=== PATIENT | female | born 1955 | race Caucasian/White ===

== ENCOUNTER → 2017-06-09 | Outpatient (CLI) | payer BC ==
[~2017-06-09] MED LIST: ACET473E5 PO; ASPI-266 PO; CALC-656 PO; CHOL200010 PO; NEBI5TAB8 PO; OMEG10005 PO
== END ==
LOC: CARD 09:51
PROVIDERS: ATTEND Internal Medicine
DX: I48.91 Unspecified atrial fibrillation (principal)
CPT/HCPCS: 93225; 93226

== ENCOUNTER 2017-06-14 08:08 | Inpatient (IN) | payer BC ==
[2017-06-14] VITALS (33 sets, daily range): BP systolic 104–142; BP diastolic 72–118
[~2017-06-14] VITALS: Ht 165.1 cm; Wt 80.4 kg
[2017-06-14] MEDS ORDERED: NS IV 1000 ML 1,000 ML IV ONE (08:40)
[2017-06-14] MEDS ORDERED: DILTIAZEM 25 MG/5 ML INJ (CARDIZEM) VIAL IVP ONE (08:45)
[2017-06-14] MEDS ORDERED: ONDANSETRON 4 MG/2 ML (SDV) Z0FRAN IVP ONE (08:45)
[2017-06-14 08:57] LABS: BASOPHILS % (AUTO) 0 % (0-10); EOSINOPHILS % (AUTO) 0 % (0-10); LYMPHOCYTES # (AUTO) 1.5 X 10^3 (1.0-4.0); LYMPHOCYTES % (AUTO) 15 % (12-44); MEAN CORPUSCULAR HEMOGLOBIN 28 PG (25-34); MEAN CORPUSCULAR HGB CONC 33 G/DL (32-36); MEAN CORPUSCULAR VOLUME 84 FL (80-99); MEAN PLATELET VOLUME 10.7 FL (7.4-10.4); MONOCYTES # (AUTO) 0.5 X 10^3 (0.0-1.0); MONOCYTES % (AUTO) 5 % (0-12); NEUTROPHILS # (AUTO) 8.4 X 10^3 (1.8-7.8); NEUTROPHILS % (AUTO) 80 % (42-75); PLATELET COUNT 214 10^3/uL (130-400); RED BLOOD COUNT 5.64 10^6/uL (4.35-5.85); RED CELL DISTRIBUTION WIDTH 13.3 % (10.0-14.5); WHITE BLOOD COUNT 10.6 10^3/uL (4.3-11.0)
[2017-06-14] MEDS: DILTIAZEM DRIP 100 MG in SODIUM CHLORIDE (ADD-VANTAGE) 100 ML IV SCH ×2 (08:58→20:18)
[2017-06-14 09:04] LABS: INR 1.1 (0.8-1.4); PROTHROMBIN TIME PATIENT 13.9 SEC (12.2-14.7)
[2017-06-14 09:17] LABS: ALANINE AMINOTRANSFERASE 30 U/L (0-55); ALBUMIN 4.6 GM/DL (3.2-4.5); ANION GAP 12 MMOL/L (5-14); ASPARTATE AMINO TRANSFERASE 22 U/L (5-34); BILIRUBIN,TOTAL 0.9 MG/DL (0.1-1.0); BLOOD UREA NITROGEN 14 MG/DL (7-18); BUN/CREATININE RATIO 12; CALCIUM 10.3 MG/DL (8.5-10.1); CARBON DIOXIDE 24 MMOL/L (21-32); CHLORIDE 107 MMOL/L (98-107); CREATININE SERUM 1.13 MG/DL (0.60-1.30); GFR ESTIMATED 48; GLUCOSE 120 MG/DL (70-105); MAGNESIUM 2.1 MG/DL (1.8-2.4); POTASSIUM 3.8 MMOL/L (3.6-5.0); SODIUM 143 MMOL/L (135-145)
[2017-06-14 09:25] LABS: MYOGLOBIN SERUM 31.7 NG/ML (10.0-92.0)
[2017-06-14 09:38] LABS: THYROID STIMULATING HORMONE 2.17 UIU/ML (0.35-4.94)
[2017-06-14 10:02] LABS: BILIRUBIN,URINE NEGATIVE (NEGATIVE); KETONES,URINE NEGATIVE (NEGATIVE); LEUKOCYTE ESTERASE ,URINE NEGATIVE (NEGATIVE); NITRITE,URINE NEGATIVE (NEGATIVE); PH,URINE 7 (5-9); PROTEIN,URINE NEGATIVE (NEGATIVE); UROBILINOGEN,URINE NORMAL (NORMAL)
[2017-06-14 10:09] LABS: WBC,URINE RARE /HPF
--- NOTE | 2017-06-14 10:20 | Diagnostic Imaging Report ---
INDICATION: Atrial fibrillation. COMPARISON: 11/30/2014. FINDINGS: The cardiac silhouette has enlarged since prior examination. No pleural effusion or pneumothorax. Visible lungs are clear. Posterior lower lobes are poorly evaluated by portable radiography. IMPRESSION: 1. Interval enlargement of cardiac silhouette may be due to cardiomegaly. 2. Pericardial effusion could be present. Consider correlation with echocardiography. Dictated by: Dictated on workstation # [id number]
--- NOTE | 2017-06-14 10:51 | ED Cardiac General ---
History of Present Illness General Chief Complaint: Cardiac/General Problems Stated Complaint: DIARRHEA,MUSCLE WEAKNESS,RACING HEART -A FIB Nursing Triage Note: c/o rapid heart rate and weakness. Pt reports symptoms have been intermittant the last few days. Hx of A-fib. Source: patient Exam Limitations: no limitations History of Present Illness Time seen by provider: 08:26 Initial Comments This pleasant 62-year-old woman presents to emergency room with complaints of tachycardia arrhythmia and lightheadedness. She has a history of atrial fibrillation which is being managed by Dr. Sorenson. She takes Cartia XT for rhythm control. She has not yet taken her dose this morning. Her last dose was at 09:00. She is tachycardic with heart rates in the 130s to 150s on arrival. She reports her symptoms have worsened throughout the week. She did recently do a property assessment monitor as an outpatient and the results are not yet known to her. She also developed nausea and diarrhea over the last 24 hours. She takes a baby aspirin daily but is not presently on anticoagulation. Allergies and Home Medications Allergies Coded Allergies: No Known Drug Allergies (Verified Allergy, Unknown, 08/21/08) Home Medications Acetaminophen With Codeine 1 Ml Elixir, 1-2 ML PO Q4H, #40 Prescribed by: RYAN VINCENT on 12/08/14 0906 Calcium Carbonate/Vitamin D3 1 Each Tablet, 1 EACH PO DAILY, (Reported) Cholecalciferol 2,000 Unit Tablet, 2,000 UNIT PO DAILY, (Reported) Nebivolol Hcl 5 Mg Tablet, 1 EACH PO DAILY, (Reported) [place]-3 Fatty Acids 1,000 Mg Capsule, 1,000 MG PO DAILY, (Reported) Review of Systems Constitutional: weakness EENTM: No Symptoms Reported Respiratory: No Symptoms Reported Cardiovascular: See HPI Gastrointestinal: See HPI Genitourinary: No Symptoms Reported Musculoskeletal: no symptoms reported Skin: no symptoms reported Psychiatric/Neurological: No Symptoms Reported Endocrine: No Symptoms Reported Hematologic/Lymphatic: No Symptoms Reported Past Fwlreyu-Zrhums-Yuqbwa Hx Patient Social History Alcohol Use: Denies Use Recreational Drug Use: No Recent Foreign Travel: No Contact w/Someone Who Travel: No Recent Infectious Disease Expo: No Immunizations Up To Date Date of Influenza Vaccine: Jul 15, 2014 Surgeries History of Surgeries: Yes (LEFT LEG LOWER PLATE, HEMORRHOIDECTOMY, SKIN CANCER , ) Surgeries: Thyroidectomy (partial) Respiratory History of Respiratory Disorde: No Cardiovascular History of Cardiac Disorders: Yes Cardiac Disorders: Atrial Fibrillation (paroxysmal) Neurological History of Neurological Disord: No Reproductive System : No Hx Reproductive Disorders: No Sexually Transmitted Disease: No HIV/AIDS: No Female Reproductive Disorders: Denies Genitourinary History of Genitourinary Disor: No Gastrointestinal History of Gastrointestinal Di: No Musculoskeletal History of Musculoskeletal Dis: Yes (PLATE IN LEFT LEG) Endocrine History of Endocrine Disorders: No HEENT Loss of Vision: Denies Hearing Impairment: Denies Cancer History of Cancer: Yes Cancer: Skin Psychosocial History of Psychiatric Problem: No Integumentary History of Skin or Integumenta: No Blood Transfusions History of Blood Disorders: No Adverse Reaction to a Blood Tr: No Physical Exam Vital Signs Vital Sign - Last 12Hours 06/14/17 08:08 Temp 97.5 Pulse 140 Resp 20 B/P (MAP) 138/100 Pulse Ox 98 O2 Delivery Room Air Capillary Refill : Less Than 3 Seconds General Appearance: No Apparent Distress, WD/WN HEENT: PERRL/EOMI, Normal ENT Inspection Neck: Normal Inspection Respiratory: Lungs Clear, Normal Breath Sounds, No Accessory Muscle Use, No Respiratory Distress Cardiovascular: No Edema, No Murmur, Irregularly Irregular, Tachycardia Extremity: Normal Inspection, No Pedal Edema Neurologic/Psychiatric: Alert, Oriented x3, No Motor/Sensory Deficits, Normal 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, 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 Skin: Normal Color, Warm/Dry Progress/Results/Core Measures Results/Orders Lab Results Laboratory Tests Test 06/14/17 08:45 06/14/17 09:54 Range/Units White Blood Count 10.6 4.3-11.0 10^3/uL Red Blood Count 5.64 4.35-5.85 10^6/uL Hemoglobin 15.7 11.5-16.0 G/DL Hematocrit 48 35-52 % Mean Corpuscular Volume 84 80-99 FL Mean Corpuscular Hemoglobin 28 25-34 PG Mean Corpuscular Hemoglobin Concent 33 32-36 G/DL Red Cell Distribution Width 13.3 10.0-14.5 % Platelet Count 214 130-400 10^3/uL Mean Platelet Volume 10.7 H 7.4-10.4 FL Neutrophils (%) (Auto) 80 H 42-75 % Lymphocytes (%) (Auto) 15 12-44 % Monocytes (%) (Auto) 5 0-12 % Eosinophils (%) (Auto) 0 0-10 % Basophils (%) (Auto) 0 0-10 % Neutrophils # (Auto) 8.4 H 1.8-7.8 X 10^3 Lymphocytes # (Auto) 1.5 1.0-4.0 X 10^3 Monocytes # (Auto) 0.5 0.0-1.0 X 10^3 Eosinophils # (Auto) 0.0 0.0-0.3 10^3/uL Basophils # (Auto) 0.0 0.0-0.1 10^3/uL Prothrombin Time 13.9 12.2-14.7 SEC INR Comment 1.1 0.8-1.4 Activated Partial Thromboplast Time 30 24-35 SEC Sodium Level 143 135-145 MMOL/L Potassium Level 3.8 3.6-5.0 MMOL/L Chloride Level 107 98-107 MMOL/L Carbon Dioxide Level 24 21-32 MMOL/L Anion Gap 12 5-14 MMOL/L Blood Urea Nitrogen 14 7-18 MG/DL Creatinine 1.13 0.60-1.30 MG/DL Estimat Glomerular Filtration Rate 48 BUN/Creatinine Ratio 12 Glucose Level 120 H 70-105 MG/DL Calcium Level 10.3 H 8.5-10.1 MG/DL Magnesium Level 2.1 1.8-2.4 MG/DL Total Bilirubin 0.9 0.1-1.0 MG/DL Aspartate Amino Transf (AST/SGOT) 22 5-34 U/L Alanine Aminotransferase (ALT/SGPT) 30 0-55 U/L Alkaline Phosphatase 86 40-136 U/L Myoglobin 31.7 10.0-92.0 NG/ML Troponin I < 0.30 <0.30 NG/ML Total Protein 8.0 6.4-8.2 GM/DL Albumin 4.6 H 3.2-4.5 GM/DL Thyroid Stimulating Hormone (TSH) 2.17 0.35-4.94 UIU/ML Free Thyroxine 1.31 0.70-1.48 NG/DL Urine Color YELLOW Urine Clarity CLEAR Urine pH 7 5-9 Urine Specific [place] 1.005 L 1.016-1.022 Urine Protein NEGATIVE NEGATIVE Urine Glucose (UA) NEGATIVE NEGATIVE Urine Ketones NEGATIVE NEGATIVE Urine Nitrite NEGATIVE NEGATIVE Urine Bilirubin NEGATIVE NEGATIVE Urine Urobilinogen NORMAL NORMAL MG/DL Urine Leukocyte Esterase NEGATIVE NEGATIVE Urine RBC (Auto) 2+ H NEGATIVE Urine RBC 2-5 H /HPF Urine WBC RARE /HPF Urine Squamous Epithelial Cells 2-5 /HPF Urine Crystals NONE /LPF Urine Bacteria FEW H /HPF Urine Casts NONE /LPF Urine Mucus NEGATIVE /LPF Urine Culture Indicated NO My Orders Orders - FREDY REICH MD Ekg Tracing (06/14/17 08:31) Cbc With Automated Diff (06/14/17 08:40) Magnesium (06/14/17 08:40) Chest 1 View, Ap/Pa Only (06/14/17 08:40) Cardiac Profile 1 (06/14/17 08:40) Comprehensive Metabolic Panel (06/14/17 08:40) Myoglobin Serum (06/14/17 08:40) Protime With Inr (06/14/17 08:40) Partial Thromboplastin Time (06/14/17 08:40) Monitor-Rhythm Ecg Trace Only (06/14/17 08:40) Lipid Panel (06/15/17 06:00) Saline Lock/Iv-Start (06/14/17 08:40) Ns Iv 1000 Ml (Sodium Chloride 0.9%) (06/14/17 08:40) Ondansetron Injection (Zofran Injectio (06/14/17 08:45) Thyroid Stimulating Hormone (06/14/17 08:40) Free T4 (Free Thyroxine) (06/14/17 08:40) Ua Culture If Indicated (06/14/17 08:40) Diltiazem Injection (Cardizem Injection) (06/14/17 08:45) Sodium Chloride (Ad... W/Diltiazem Drip (06/14/17 08:45) Medications Given in ED Current Medications Medications Dose Ordered Sig/Raine Route Start Time Stop Time Status Last Admin Dose Admin Diltiazem HCl 10 mg ONCE ONCE IVP 06/14/17 08:45 06/14/17 08:46 DC 06/14/17 08:56 10 MG Ondansetron HCl 4 mg ONCE ONCE IVP 06/14/17 08:45 06/14/17 08:46 DC 06/14/17 08:58 4 MG Sodium Chloride 1,000 ml @ 0 mls/hr Q0M ONCE IV 06/14/17 08:40 06/14/17 08:42 DC 06/14/17 08:59 1,000 MLS/HR Vital Signs/I&O Vital Sign - Last 12Hours 06/14/17 06/14/17 08:08 08:58 Temp 97.5 98.3 Pulse 140 140 Resp 20 18 B/P (MAP) 138/100 143/103 Pulse Ox 98 97 O2 Delivery Room Air Blood Pressure Mean: 113 Progress Note #1: Time: 11:00 Progress Note Workup is unremarkable. Patient responded well to Cardizem drip at 10 mg per hour after a 10 mg bolus. Heart rate is presently 101. Blood pressure is 122/ 95. Patient is feeling improved. Progress Note #2: Time: 11:[address] Lake does recommend Eliquis which will be added to the orders. ECG Initial ECG Impression Date: Jun 14, 2017 Initial ECG Impression Time: 08:24 Initial ECG Rate: 157 Initial ECG Rhythm: A Fib/Flutter Initial ECG Impression: Atrial Fibrillation Comment Atrial fibrillation with rapid ventricular response. No acute ST elevation or depression. Diagnostic Imaging Diagonstic Imaging: Xray Plain Films/CT/US/NM/MRI: chest Comments Chest x-ray viewed by me and report reviewed. See report below: NAME: EPIFANIO LAKHANI [facility] REC#: [id number] PT STATUS: REG ER : 1955 PHYSICIAN: FREDY REICH MD ADMIT DATE: 06/14/17/ER Draft Date of Exam:06/14/17 CHEST 1 VIEW, AP/PA ONLY INDICATION: Atrial fibrillation. COMPARISON: 11/30/2014. FINDINGS: The cardiac silhouette has enlarged since prior examination. No pleural effusion or pneumothorax. Visible lungs are clear. Posterior lower lobes are poorly evaluated by portable radiography. IMPRESSION: 1. Interval enlargement of cardiac silhouette may be due to cardiomegaly. 2. Pericardial effusion could be present. Consider correlation with echocardiography. Dictated on workstation # [id number] Dict: 06/14/17 1005 Trans: 06/14/17 1020 TS [id number] Interpreted by: JERAD GLYNN MD Departure Communication (Admissions) Time/Spoke to Admitting Phy: 10:[address] Weiss agrees with admission to cardiac step down on Cardizem drip. She would like a cardiology consultation. Time/Spoke to Consulting Phy: 10:45 Communication/Consulting Dr. Lake notified of consultation. He agrees with a Cardizem drip and would like patient started on Eliquis. Impression Impression: Primary Impression: Atrial fibrillation with rapid ventricular response Additional Impressions: Nausea Diarrhea Qualified Codes: R19.7 - Diarrhea, unspecified Disposition: 09 ADMITTED INPATIENT Condition: Improved Admissions Decision to Admit Reason: Admit from ER (General) Decision to Admit/Date: Jun 14, 2017 Time/Decision to Admit Time: 10:30 Departure-Patient Inst. Referrals: COLLEEN SORENSON MD (PCP/Family) Primary Care Physician FREDY REICH MD Jun 14, 2017 10:51
[2017-06-14] MEDS ORDERED: ASPIRIN 81 MG CHEW (CHILDREN'S ASA) PO ONE (11:15)
[2017-06-14] MEDS ORDERED: APIXABAN 5 MG (ELIQUIS) TABLET PO ONE (11:30)
--- NOTE | 2017-06-14 12:15 | Consultation-Cardiology ---
HPI-Cardiology Cardiology Consultation: Date of Consultation 06/14/17 Date of Admission Attending Physician Hermann Sorenson MD Admitting Physician Hermann Sorenson MD Consulting Physician Sen LAKE MD HPI: Time Seen by Provider: 12:10 Chief Complaint: Palpitations, syncope This is a very pleasant 62-year-old lady with history of hypothyroidism on thyroid replacement therapy. She has family history of atrial fibrillation. She is a nonsmoker. She had a syncopal episode last weekend. She also had an irregular pulse and went to Dr. Sorenson. She was found to be in atrial fibrillation. She was started on Cardizem. However she continues to be in atrial fibrillation. She presented to the ER with atrial fibrillation with rapid ventricular rate. She complains of palpitations. She denies any chest pain however does complain of shortness of breath. She does not have any other symptoms. Review of Systems-Cardiology Review of Systems Constitutional: No As described under HPI, No no symptoms reported, No chills, No fever, No lightheadedness, No malaise, No tiredness, No weight loss, No weight gain, No other Eyes: No As described under HPI, No no symptoms reported, No blindness, No blurred vision, No contact lenses, No drainage, No decreased acuity, No foreign body sensation, No glasses, No inflammation, No pain, No photophobia, No previous injury, No shadows, No tunnel vision, No other, No vision change Ears/Nose/Throat: No As described under HPI, No no symptoms reported, No chronic hearing loss, No epistaxis, No ear discharge, No ear pain, No loose teeth, No mouth pain, No mouth swelling, No nasal drainage, No nose pain, No recent hearing loss, No throat pain, No throat swelling, No ulcerations, No other Respiratory: No no symptoms reported, No As described under HPI, No cough, No orthopnea, shortness of breath, No SOB with excertion, No SOB at rest, No stridor, No wheezing, No other Cardiovascular: irregular heart rate, palpitations, syncope Gastrointestinal: No no symptoms reported, No As described under HPI, No abdomen distended, No abdominal pain, No blood streaked bowels, No constipation , No diarrhea, No difficulty swallowing, No nausea, No poor appetite, No poor fluid intake, No rectal bleeding, No vomiting, No other, No nausea/vomiting/ diarrhea, No stool coloration changes Genitourinary: No no symptoms reported, No As described under HPI, No burning, No dysuria, No discharge, No frequency, No flank pain, No hematuria, No incontinence, No pain, No urgency, No other, No urine frequency changes, No urine coloration changes Musculoskeletal: No no symptoms reported, No As describe under HPI, No back pain, No gout, No joint pain, No joint swelling, No muscle pain, No muscle stiffness, No neck pain, No other Skin: No no symptoms reported, No As described under HPI, No change in color, No change in hair/nails, No dryness, No lesions, No lumps, No rash, No other, No skin related problems, No ulcerations, No rash on exposed areas, No ulcerations on exposed areas Psychiatric/Neurological: No no symptoms reported, No As described under HPI, No anxiety, No depression, No emotional problems, No headache, No numbness, No pre-existing deficit, No seizure, No tingling, No tremors, No weakness, No other , No focal weakness, No syncope Hematologic: No no symptoms reported, No As described under HPI, No anemia, No blood clots, No easy bleeding, No easy bruising, No swollen glands, No other, No bleeding abnormalities TCP-[id number]-Derqpc Hx Patient Social History Alcohol Use: Denies Use Recreational Drug Use: No Recent Foreign Travel: No Recent Infectious Disease Expo: No Immunizations Up To Date Date of Influenza Vaccine: Jul 15, 2014 Past Medical History PMH As described under Assessment. Allergies and Home Medications Allergies Coded Allergies: No Known Drug Allergies (Verified Allergy, Unknown, 08/21/08) Home Medications Acetaminophen With Codeine 1 Ml Elixir, 1-2 ML PO Q4H, #40 Prescribed by: RYAN VINCENT on 12/08/14 0906 Calcium Carbonate/Vitamin D3 1 Each Tablet, 1 EACH PO DAILY, (Reported) Cholecalciferol 2,000 Unit Tablet, 2,000 UNIT PO DAILY, (Reported) Nebivolol Hcl 5 Mg Tablet, 1 EACH PO DAILY, (Reported) Fate-3 Fatty Acids 1,000 Mg Capsule, 1,000 MG PO DAILY, (Reported) Physical Exam-Cardiology Physical Exam Vital Signs/I&O Vital Sign - Last 12Hours 06/14/17 06/14/17 06/14/17 08:08 08:58 11:12 Temp 97.5 98.3 98.3 Pulse 140 140 Resp 20 18 B/P (MAP) 138/100 143/103 Pulse Ox 98 97 O2 Delivery Room Air Capillary Refill : Less Than 3 Seconds Constitutional: No appears stated age, No AAO x 3, No apparent distress, No PERRL, No well-developed, No well-nourished, No other HEENT: No PERRL, No normal ENT inspection, No TMs normal, No pharynx normal, No scleral icterus (R), No scleral icterus (L), No pale conjunctivae (R), No pale conjunctivae (L), No photophobia, No TM abnormal (R), No TM abnormal (L), No pharyngeal erythema, No tonsillar exudate, No other, No discharge, No EOMI, No hearing is well preserved, No hard of hearing, No oral hygience is good, No ulceration, No xanthelasmas are seen Neck: No non-tender, No full range of motion, No supple, No normal inspection, No carotid bruit, No limited range of motion, No lymphadenopathy (R), No lymphadenopathy (L), No tender lateral, No tender midline, No thyromegaly, No other, No carotid pulses are 2 + bilaterally, No with good upstrokes Respiratory: No accessory muscle use, No respiratory distress, No chest tender , No chest expansion is symmetric, No chest is bilaterally symmetric, No lungs clear to percussion, No lungs clear to auscultation, No crackles, No rhonchi, No rales, No stridor, No wheezing, No pleural rub, No other Cardiovascular: irregularly irregular, S1 and S2 Gastrointestinal: No tender, No soft, No round, No distended, No pulsatile mass , No organomegaly, No guarding, No rebound, No tenderness, No hernia, No mass, No audible bowel sounds, No abnormal bowel sounds, No abdominal bruits, No spleenomegaly, No other Rectal: deferred Extremities: No normal range of motion, No non-tender, No normal inspection, No pedal edema, No calf tenderness, No normal capillary refill, No pelvis stable , No calf tenderness, No inflammation, No pedal edema, No slow capillary refill , No swelling, No other, No abrasion, No clubbing, No cyanosis, No ecchymosis, No laceration, No no lower extremity edema bilateral, No significant edema, No tenderness, No wound Neurologic/Psychiatric: No timber setter II-XII nml as tested, No no motor/sensory deficits, No alert, No normal mood/affect, No oriented x 3, No abnormal cerebellar tests, No abnormal timber setter II-XII, No abnormal gait, No aphasia, No EOM palsy, No facial droop, No motor weakness, No sensory deficit, No depressed affect, No disoriented x 3, No other, No grossly intact, No power is 5/5 both on sides Skin: No normal color, No warm/dry, No cyanosis, No cool, No diaphoresis, No damp, No ecchymosis, No jaundice, No mottled, No pallor, No rash, No tattoos/ piercings, No ulcerations, No rash on exposed areas, No ulcerations on exposed areas, No other Data Review Labs Laboratory Tests 06/14/17 08:45: White Blood Count 10.6, Red Blood Count 5.64, Hemoglobin 15.7, Hematocrit 48, Mean Corpuscular Volume 84, Mean Corpuscular Hemoglobin 28, Mean Corpuscular Hemoglobin Concent 33, Red Cell Distribution Width 13.3, Platelet Count 214, Mean Platelet Volume 10.7H, Neutrophils (%) (Auto) 80H, Lymphocytes (%) (Auto) 15, Monocytes (%) (Auto) 5, Eosinophils (%) (Auto) 0, Basophils (%) (Auto) 0, Neutrophils # (Auto) 8.4H, Lymphocytes # (Auto) 1.5, Monocytes # (Auto) 0.5, Eosinophils # (Auto) 0.0, Basophils # (Auto) 0.0, Prothrombin Time 13.9, INR Comment 1.1, Activated Partial Thromboplast Time 30, Sodium Level 143, Potassium Level 3.8, Chloride Level 107, Carbon Dioxide Level 24, Anion Gap 12, Blood Urea Nitrogen 14, Creatinine 1.13, Estimat Glomerular Filtration Rate 48, BUN/Creatinine Ratio 12, Glucose Level 120H, Calcium Level 10.3H, Magnesium Level 2.1, Total Bilirubin 0.9, Aspartate Amino Transf (AST/SGOT) 22, Alanine Aminotransferase (ALT/SGPT) 30, Alkaline Phosphatase 86, Myoglobin 31.7, Troponin I < 0.30, Total Protein 8.0, Albumin 4.6H, Thyroid Stimulating Hormone (TSH) 2.17, Free Thyroxine 1.31 06/14/17 09:54: Urine Color YELLOW, Urine Clarity CLEAR, Urine pH 7, Urine Specific [place] 1.005L, Urine Protein NEGATIVE, Urine Glucose (UA) NEGATIVE, Urine Ketones NEGATIVE, Urine Nitrite NEGATIVE, Urine Bilirubin NEGATIVE, Urine Urobilinogen NORMAL, Urine Leukocyte Esterase NEGATIVE, Urine RBC (Auto) 2+H, Urine RBC 2-5H , Urine WBC RARE, Urine Squamous Epithelial Cells 2-5, Urine Crystals NONE, Urine Bacteria FEWH, Urine Casts NONE, Urine Mucus NEGATIVE, Urine Culture Indicated NO ECG Impression ECG Initial ECG Impression: Atrial Fibrillation w/RVR A/P-Cardiology Assessment/Admission Diagnosis 1. Atrial fibrillation with rapid ventricular rate, 2. Hypertension, 3. Syncope, 4. Hypothyroidism Plan Continue Cardizem infusion, start oral anticoagulation with Eliquis twice a day. Started amiodarone infusion. if she does not convert by tomorrow morning - > DAWN / Cardioversion tomorrow afternoon. NPO after light breakfast. Echocardiogram Telemetry Blood pressure control with Cardizem for now. CHADSVASC score is 2 for gender and HTN. So NOAC are indicated. Possible sleep apnea - sleep study as outpatient. TSH normal Thank you for your consultation. Please call me if you have any questions. Carlo Lake MD, FACP, FACC, FSCAI, FHRS, CCDS Interventional Cardiology Cardiac Electrophysiology Vascular Medicine and Endovascular Interventions Sen LAKE MD Jun 14, 2017 12:15 pm
[2017-06-14] MEDS: NS IV 1000 ML 1,000 ML IV SCH ×2 (12:26→23:29)
[2017-06-14] MEDS ORDERED: ONDANSETRON 4 MG/2 ML (SDV) Z0FRAN IV PRN (12:30)
[2017-06-14] MEDS ORDERED: LEVO50TA6 PO (12:46)
[2017-06-14] MEDS ORDERED: ASPI-983 PO (12:46)
[2017-06-14] MEDS ORDERED: DILT180C54 PO (12:46)
[2017-06-14] MEDS ORDERED: IBUP-1779 PO (13:01)
--- NOTE | 2017-06-14 13:34 | History & Physical-Hospitalist ---
HPI History of Present Illness: HPI/Chief Complaint CC: AF w/RVR HPI: This is a 62yoWF clinic patient of Dr Sorenson who has a h/o AF for 5 years , as does her father and brother, who had been doing well under regular appt with Dr Sorenson who began having issues with recurrent AF episodes which required office appt with Dr Sorenson on Thursday then progressed the rest of the week then became very severe last evening prompting a visit to ER. Pt was found to be in AF w/RVR which is requiring Cardizem IV infusion and Cardiology consultation. Source: patient, RN/MD Exam Limitations: no limitations Date Seen 06/14/17 Time Seen by Provider: 13:15 Attending Physician Hermann Sorenson MD PCP Hermann Sorenson MD Referring Physician Date of Admission Jun 14, 2017 at 10:54 Home Medications & Allergies Home Medications Reviewed patient Home Medication Reconciliation Form Allergies Allergies Coded Allergies No Known Drug Allergies ([id number]/[id number]/08) Past [place] Hx Patient Social History Employed/Student: employed ([employer] 16 years) Alcohol Use: Denies Use Recreational Drug Use: No Smoking Status: Never a Smoker Recent Foreign Travel: No Contact w/other who traveled: No Recent Infectious Disease Expo: No Immunizations Up To Date Date of Influenza Vaccine: Jul 15, 2014 Surgeries Yes (LEFT LEG LOWER PLATE, HEMORRHOIDECTOMY, SKIN CANCER, ) Thyroidectomy (partial) Respiratory No Cardiovascular Yes Atrial Fibrillation (paroxysmal) Neurological No Reproductive System : No Hx Reproductive Disorders: No Sexually Transmitted Disease: No HIV/AIDS: No Female Reproductive Disorders: Denies Genitourinary No Gastrointestinal No Musculoskeletal Yes (PLATE IN LEFT LEG) Endocrine History of Endocrine Disorders: No HEENT Loss of Vision: Denies Hearing Impairment: Denies Cancer Yes Skin Psychosocial History of Psychiatric Problem: No Integumentary History of Skin or Integumenta: No Blood Transfusions History of Blood Disorders: No Adverse Reaction to a Blood Tr: No Review of Systems Constitutional: see HPI, dizziness, malaise, weakness EENTM: no symptoms reported Respiratory: dyspnea on exertion Cardiovascular: palpitations Gastrointestinal: loss of appetite, nausea Genitourinary: no symptoms reported Musculoskeletal: no symptoms reported Skin: no symptoms reported Psychiatric/Neurological: No Symptoms Reported All Other Systems Reviewed Negative Unless Noted: Yes Physical Exam Physical Exam Vital Signs Vital Sign - Last 12Hours 06/14/17 08:08 Temp 97.5 Pulse 140 Resp 20 B/P (MAP) 138/100 Pulse Ox 98 O2 Delivery Room Air Capillary Refill : Less Than 3 Seconds General Appearance: No Apparent Distress, WD/WN, Chronically ill Eyes: Bilateral Eye Normal Inspection, Bilateral Eye PERRL HEENT: PERRL/EOMI, Normal ENT Inspection, Pharynx Normal Neck: Full Range of Motion, Normal Inspection, Non Tender, Supple, Carotid Bruit Respiratory: Chest Non Tender, Lungs Clear, Normal Breath Sounds, No Accessory Muscle Use, No Respiratory Distress Cardiovascular: No Edema, No Gallop, No JVD, No Murmur, Normal Peripheral Pulses, Irregularly Irregular, Tachycardia Gastrointestinal: Normal Bowel Sounds, No Organomegaly, No Pulsatile Mass, Non Tender, Soft Back: Normal Inspection, No CVA Tenderness, No Vertebral Tenderness Extremity: Normal Capillary Refill, Normal Inspection, Normal Range of Motion, Non Tender, No Calf Tenderness, No Pedal Edema Neurologic/Psychiatric: Alert, Oriented x3, No Motor/Sensory Deficits, Normal Mood/Affect Skin: Normal Color, Warm/Dry Lymphatic: No Adenopathy Results Results/Procedures Lab Laboratory Tests 06/14/17 08:45 Assessment/Plan Admission Diagnosis AF w/RVR Assessment and Plan Plan: [facility] ip Cardiology consultation Monitor closely Home meds Diagnosis/Problems Diagnosis/Problems (1) Atrial fibrillation with rapid ventricular response Status: Acute (2) Hypothyroidism Status: Chronic Qualifiers: Qualified Codes: E03.9 - Hypothyroidism, unspecified (3) Nausea Status: Acute Assessment & Plan: DANIELLA Dunne DO Jun 14, 2017 13:34
[2017-06-14] MEDS ORDERED: AMIODARONE INJECTION 450 MG in D5W IV SOLUTION (EXCEL) 250 ML IV SCH ×4 (17:00)
[2017-06-14] MEDS ORDERED: AMIODARONE INJECTION 450 MG in D5W IV SOLUTION (EXCEL) 250 ML IV ONE (17:00)
[2017-06-14] MEDS: ACETAMINOPHEN 325 MG TABLET/CAPLET (TYLENOL) PO PRN ×2 (17:38→23:27)
[2017-06-14] MEDS ORDERED: AMIODARONE 450 MG/9 ML (CORDARONE) VIAL IV ONE (17:47)
[2017-06-14] MEDS ORDERED: D5W IV SOLUTION (EXCEL) 250 ML IV ONE (17:48)
[2017-06-14] MEDS: APIXABAN 5 MG (ELIQUIS) TABLET PO SCH (20:02)
[2017-06-15] VITALS (24 sets, daily range): BP systolic 100–147; BP diastolic 67–112
[2017-06-15 04:40] LABS: CHOLESTEROL 171 MG/DL (< 200); DIRECT LDL 94 MG/DL (1-129); TRIGLYCERIDES 80 MG/DL (<150); VLDL CHOLESTEROL 16 MG/DL (5-40)
[2017-06-15] MEDS: DILTIAZEM DRIP 100 MG in SODIUM CHLORIDE (ADD-VANTAGE) 100 ML IV SCH ×2 (04:45→08:22)
[2017-06-15] MEDS ORDERED: MAGNESIUM 1 GM/100 ML IVPB 100 ML IV SCH (06:00)
[2017-06-15] MEDS ORDERED: POTASSIUM CL 10MEQ/50ML IVPB 50 ML IV SCH (06:00)
[2017-06-15] MEDS ORDERED: KCL 20 MEQ TAB (K-DUR) PO SCH (06:00)
[2017-06-15 06:42] LABS: ANION GAP 10 MMOL/L (5-14); BLOOD UREA NITROGEN 12 MG/DL (7-18); BUN/CREATININE RATIO 14; CALCIUM 8.8 MG/DL (8.5-10.1); CARBON DIOXIDE 21 MMOL/L (21-32); CHLORIDE 111 MMOL/L (98-107); CREATININE SERUM 0.84 MG/DL (0.60-1.30); GFR ESTIMATED > 60; GLUCOSE 109 MG/DL (70-105); MAGNESIUM 1.8 MG/DL (1.8-2.4); POTASSIUM 3.9 MMOL/L (3.6-5.0); SODIUM 142 MMOL/L (135-145)
[2017-06-15] MEDS ORDERED: INFLUENZA TRIvalent 2017-2018 0.5 ML/45 MCG SYR IM ONE (07:15)
--- NOTE | 2017-06-15 07:44 | Pulmonary Consultation ---
History of Present Illness History of Present Illness Date of Consultation 06/15/17 07:39 Time Seen by Provider: 07:41 Date of Admission History of Present Illness 62yo with hx of recurrent AFib presented to ED secondary to palpitations and was found to be in Afib RVR. She was placed on Cardizem gtt and admitted to ICU. pt had syncopal episode last weekend. I am consulted for probable DIMITRI. Allergies and Home Medications Allergies Coded Allergies: No Known Drug Allergies (Verified , 08/21/08) Home Medications Aspirin 81 Mg Tablet.dr, 81 MG PO DAILY, (Reported) Calcium Carbonate/Vitamin D3 1 Each Tablet, 1 EACH PO DAILY, (Reported) Cholecalciferol 2,000 Unit Tablet, 2,000 UNIT PO DAILY, (Reported) Diltiazem HCl 180 Mg Cap.er.24h, 180 MG PO DAILY, (Reported) Ibuprofen 400 Mg Tablet, 400 MG PO Q6H PRN for PAIN, (Reported) Levothyroxine Sodium 50 Mcg Tablet, 50 MCG PO DAILY, (Reported) Past Iceevwv-Oxunhq-Gfblxi Hx Patient Social History Alcohol Use: Denies Use Recreational Drug Use: No Smoking Status: Never a Smoker Recent Foreign Travel: No Contact w/Someone Who Travel: No Recent Infectious Disease Expo: No Recent Hopitalizations: No Immunizations Up To Date Date of Influenza Vaccine: Jul 15, 2014 Seasonal Allergies Seasonal Allergies: No Surgeries History of Surgeries: Yes (LEFT LEG LOWER PLATE, HEMORRHOIDECTOMY, SKIN CANCER , ) Surgeries: Thyroidectomy (partial) Respiratory History of Respiratory Disorde: No Cardiovascular History of Cardiac Disorders: Yes Cardiac Disorders: Atrial Fibrillation (paroxysmal) Neurological History of Neurological Disord: No Reproductive System : No Hx Reproductive Disorders: No Sexually Transmitted Disease: No HIV/AIDS: No Female Reproductive Disorders: Denies Genitourinary History of Genitourinary Disor: No Gastrointestinal History of Gastrointestinal Di: Yes Gastrointestinal Disorders: Irritable Bowel Musculoskeletal History of Musculoskeletal Dis: Yes (PLATE IN LEFT LEG) Endocrine History of Endocrine Disorders: Yes (thyroidectomy) HEENT Loss of Vision: Denies Hearing Impairment: Denies Cancer History of Cancer: Yes Cancer: Skin Psychosocial History of Psychiatric Problem: No Integumentary History of Skin or Integumenta: Yes (melanoma to r arm, removed) Blood Transfusions History of Blood Disorders: No Adverse Reaction to a Blood Tr: No Exam Exam Vital Signs Date Time Temp Pulse Resp B/P (MAP) Pulse Ox O2 Delivery O2 Flow Rate FiO2 06/15/17 06:00 71 16 114/92 Room Air 06/15/17 05:00 67 15 113/87 Room Air 06/15/17 04:00 69 12 118/80 Room Air 06/15/17 04:00 94 Room Air 06/15/17 03:00 68 15 104/79 Room Air 06/15/17 02:00 75 15 107/72 Room Air 06/15/17 01:35 67 101/75 06/15/17 01:00 76 06/15/17 01:00 69 14 100/76 Room Air 06/15/17 00:15 69 107/72 06/15/17 00:00 79 13 105/73 Room Air 06/15/17 00:00 95 Room Air 06/14/17 23:00 79 13 126/92 Room Air 06/14/17 22:00 73 14 134/75 Room Air 06/14/17 21:05 96 Room Air 06/14/17 21:00 74 17 127/86 Room Air 06/14/17 20:18 97.9 75 129/90 95 06/14/17 20:00 96 Room Air 06/14/17 20:00 87 22 125/102 Room Air 06/14/17 20:00 97.9 06/14/17 19:00 75 06/14/17 19:00 75 13 104/79 Room Air 06/14/17 18:45 84 17 113/75 Room Air 06/14/17 18:30 86 17 119/80 Room Air 06/14/17 18:15 81 13 114/78 Room Air 06/14/17 18:08 100.1 06/14/17 18:00 82 16 126/82 Room Air 06/14/17 17:45 96 19 130/91 Room Air 06/14/17 17:38 100.1 06/14/17 17:30 79 16 120/77 Room Air 06/14/17 17:15 93 22 135/84 Room Air 06/14/17 17:00 122 30 142/103 Room Air 06/14/17 16:45 86 17 123/85 Room Air 06/14/17 16:30 91 14 125/82 Room Air 06/14/17 16:15 96 22 120/84 Room Air 06/14/17 16:00 102 19 126/73 Room Air 06/14/17 16:00 95 Room Air 06/14/17 15:45 74 18 117/84 Room Air 06/14/17 15:30 84 19 116/72 Room Air 06/14/17 15:15 89 13 121/74 Room Air 06/14/17 15:00 109 18 133/83 Room Air 06/14/17 14:45 92 14 120/80 Room Air 06/14/17 14:30 89 17 118/86 Room Air 06/14/17 14:15 122 29 108/83 Room Air 06/14/17 14:00 92 12 115/77 Room Air 06/14/17 13:45 95 13 117/88 Room Air 06/14/17 13:30 95 21 115/90 Room Air 06/14/17 13:15 103 20 120/87 Room Air 06/14/17 13:00 102 6 118/87 Room Air 06/14/17 12:45 89 16 124/91 Room Air 06/14/17 12:30 115 40 118/76 Room Air 06/14/17 12:26 98 06/14/17 12:15 122 23 133/118 Room Air 06/14/17 12:00 100.1 107 19 141/95 95 Room Air 06/14/17 11:58 120 06/14/17 11:34 98.3 110 18 97 06/14/17 11:12 98.3 06/14/17 08:58 98.3 140 18 143/103 97 06/14/17 08:08 97.5 140 20 138/100 98 Room Air General Appearance: No Apparent Distress, WD/WN, Chronically ill HEENT: PERRL/EOMI, Normal ENT Inspection, Pharynx Normal Neck: Full Range of Motion, Normal Inspection, Non Tender, Supple, Carotid Bruit Respiratory: Chest Non Tender, Lungs Clear, Normal Breath Sounds, No Accessory Muscle Use, No Respiratory Distress Cardiovascular: No Edema, No Gallop, No JVD, No Murmur, Normal Peripheral Pulses, Irregularly Irregular, Tachycardia Capillary Refill: Less Than 3 Seconds Extremity: Normal Capillary Refill, Normal Inspection, Normal Range of Motion, Non Tender, No Calf Tenderness, No Pedal Edema Neurologic/Psychiatric: Alert, Oriented x3, No Motor/Sensory Deficits, Normal Mood/Affect Skin: Normal Color, Warm/Dry Lymphatic: No Adenopathy Results Lab Laboratory Tests 06/14/17 08:45 06/15/17 03:40 Assessment/Plan Assessment/Plan Afib RVR -Cardizem -Cardiology following -Eliquis HTN Probable DIMITRI -PSG as out patient 254 Clinical Quality Measures DVT/VTE Risk/Contraindication: Risk Factor Score Per Nursin RFS Level Per Nursing on Admit: 2=Moderate GUIDO GARCIA DO Jun 15, 2017 07:44
--- NOTE | 2017-06-15 08:13 | Diagnostic Imaging Report ---
INDICATION: A fib, nausea, vomiting, diarrhea. Comparison made to prior examination 06/14/2017. FINDINGS: There is cardiomegaly. Mediastinum is unremarkable. Lungs are clear. There is no pleural effusion or pneumothorax. Mediastinum is unremarkable. IMPRESSION: No acute cardiopulmonary abnormality. Cardiomegaly. Dictated by: Dictated on workstation # [id number]
[2017-06-15] MEDS: APIXABAN 5 MG (ELIQUIS) TABLET PO SCH ×2 (08:20→20:52)
[2017-06-15] MEDS: ASPIRIN E.C. 81 MG (ECOTRIN) TAB PO SCH (08:21)
[2017-06-15] MEDS: NS IV 1000 ML 1,000 ML IV SCH ×2 (08:22→17:43)
[2017-06-15] MEDS: LEVOTHYROXINE 50 MCG (LEVOTHROID) TAB PO SCH (08:22)
[2017-06-15] MEDS ORDERED: CHOL20002 PO (10:22)
[2017-06-15] MEDS ORDERED: CALC-78 PO (10:22)
[2017-06-15] MEDS ORDERED: FAMO-119 PO (10:22)
[2017-06-15] MEDS: DILTIAZEM 240 MG (CARDIZEM CD) CAP PO SCH (10:31)
--- NOTE | 2017-06-15 13:42 | Cardiology Progress Note ---
Cardiology SOAP Progress Note Subjective: Still in atrial fibrillation with rapid ventricular rate. No significant symptoms. Objective: I&O/Vital Signs Vital Sign - Last 12Hours 06/15/17 06/15/17 06/15/17 06/15/17 02:00 03:00 04:00 04:00 Pulse 75 68 69 Resp 15 15 12 B/P (MAP) 107/72 104/79 118/80 Pulse Ox 94 O2 Delivery Room Air Room Air Room Air Room Air 06/15/17 06/15/17 06/15/17 06/15/17 05:00 06:00 07:00 08:00 Temp 98.1 Pulse 67 71 66 Resp 15 16 B/P (MAP) 113/87 114/92 Pulse Ox 96 O2 Delivery Room Air Room Air Room Air 06/15/17 06/15/17 06/15/17 06/15/17 08:00 08:22 09:00 12:00 Temp 97.9 Pulse 66 Resp 16 B/P (MAP) 127/91 Pulse Ox 95 94 96 95 O2 Delivery Room Air Room Air Room Air Weight (Pounds): 177 Weight (Ounces): 5.0 Weight (Calculated Kilograms): 80.612388 Constitutional: No appears stated age, No AAO x 3, No apparent distress, No PERRL, No well-developed, No well-nourished, No other Respiratory: No accessory muscle use, No respiratory distress, No chest tender , No chest expansion is symmetric, No chest is bilaterally symmetric, No lungs clear to percussion, No lungs clear to auscultation, No crackles, No rhonchi, No rales, No stridor, No wheezing, No pleural rub, No other Cardiovascular: irregularly irregular, tachycardia, S1 and S2 Gastrointestional: No tender, No soft, No round, No distended, No pulsatile mass, No organomegaly, No guarding, No rebound, No tenderness, No hernia, No mass, No audible bowel sounds, No abnormal bowel sounds, No abdominal bruits, No spleenomegaly, No other Extremities: No normal range of motion, No non-tender, No normal inspection, No pedal edema, No calf tenderness, No normal capillary refill, No pelvis stable , No calf tenderness, No inflammation, No pedal edema, No slow capillary refill , No swelling, No other, No abrasion, No clubbing, No cyanosis, No ecchymosis, No laceration, No no lower extremity edema bilateral, No significant edema, No tenderness, No wound Neurologic/Psychiatric: No dry chain operator II-XII nml as tested, No no motor/sensory deficits, No alert, No normal mood/affect, No oriented x 3, No abnormal cerebellar tests, No abnormal dry chain operator II-XII, No abnormal gait, No aphasia, No EOM palsy, No facial droop, No motor weakness, No sensory deficit, No depressed affect, No disoriented x 3, No other, No grossly intact, No power is 5/5 both on sides Skin: No normal color, No warm/dry, No cyanosis, No cool, No diaphoresis, No damp, No ecchymosis, No jaundice, No mottled, No pallor, No rash, No tattoos/ piercings, No ulcerations, No rash on exposed areas, No ulcerations on exposed areas, No other Results/Procedures: Labs Laboratory Tests 06/15/17 03:40: Sodium Level 142, Potassium Level 3.9, Chloride Level 111H, Carbon Dioxide Level 21, Anion Gap 10, Blood Urea Nitrogen 12, Creatinine 0.84, Estimat Glomerular Filtration Rate > 60, BUN/Creatinine Ratio 14, Glucose Level 109H, Calcium Level 8.8, Magnesium Level 1.8, Triglycerides Level 80, Cholesterol Level 171, LDL Cholesterol Direct 94, VLDL Cholesterol 16, HDL Cholesterol 61H A/P: Assessment/Dx: 1. Atrial fibrillation with rapid ventricular rate, 2. Hypertension, 3. Syncope, 4. Hypothyroidism Plan: Patient is still in atrial fibrillation and rapid ventricular rate. We are trying to transition to oral Cardizem. We gave 240 mg of long-acting Cardizem in the morning. We will add another 120 mg this afternoon. DC Cardizem infusion. DC amiodarone infusion. Echocardiogram Telemetry Blood pressure control with Cardizem for now. CHADSVASC score is 2 for gender and HTN. So NOAC are indicated. Possible sleep apnea - sleep study as outpatient. TSH normal Thank you for your consultation. Please call me if you have any questions. Carlo Lake MD, FACP, FACC, FSCAI, FHRS, CCDS Interventional Cardiology Cardiac Electrophysiology Vascular Medicine and Endovascular Interventions Sen LAKE MD Jun 15, 2017 13:42
[2017-06-15] MEDS ORDERED: DILTIAZEM 120 MG (CARDIZEM CD) CAP PO NR (13:45)
--- NOTE | 2017-06-15 14:22 | Progress Note-Hospitalist ---
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 She is a long-term patient of Dr. Geller. She has been known to have atrial fibrillation at least intermittently for 5 years. She has never taken anticoagulants but has been on daily aspirin therapy. About a week ago she began noticing some episodes of breath palpitations and breathlessness. In addition she developed a diarrheal illness with fever. She ultimately came to the emergency room and was admitted for breathlessness and atrial fibrillation with rapid ventricular response. She was placed on a Cardizem drip and the rate has decreased. At this time it still is in the 115-120 range as I watch the monitor. Dr. Lake of the cardiology service has seen her and offered her 2 courses of action. One being Eliquis which is already been started for a period of a month and then cardioversion versus a DAWN and if no clot is seen immediate cardioversion. She is pondering these options. Physical exam: She is alert and oriented. Lungs are clear to auscultation. CV is irregular. No murmur is heard. Abdomen is soft. Extremities show no pedal edema. Impression: Atrial fibrillation with rapid ventricular response Plan/note: As above the patient is considering her choice relative to addressing the atrial fibrillation. Labs Laboratory Tests 06/14/17 08:45 06/15/17 03:40 THI VALVERDE MD Jun 15, 2017 14:22
[2017-06-15] MEDS ORDERED: meTOprolol TARTRATE 50 MG (LOPRESSOR) TAB PO NR (15:00)
[2017-06-16] VITALS (11 sets, daily range): BP systolic 108–139; BP diastolic 76–106
[2017-06-16] MEDS: DILTIAZEM DRIP 100 MG in SODIUM CHLORIDE (ADD-VANTAGE) 100 ML IV SCH ×2 (00:45→12:02)
[2017-06-16] MEDS: NS IV 1000 ML 1,000 ML IV SCH (04:36)
[2017-06-16 05:17] LABS: BASOPHILS % (AUTO) 1 % (0-10); EOSINOPHILS # (AUTO) 0.2 10^3/uL (0.0-0.3); EOSINOPHILS % (AUTO) 3 % (0-10); LYMPHOCYTES # (AUTO) 2.8 X 10^3 (1.0-4.0); LYMPHOCYTES % (AUTO) 34 % (12-44); MEAN CORPUSCULAR HEMOGLOBIN 28 PG (25-34); MEAN CORPUSCULAR HGB CONC 33 G/DL (32-36); MEAN CORPUSCULAR VOLUME 86 FL (80-99); MEAN PLATELET VOLUME 10.7 FL (7.4-10.4); MONOCYTES # (AUTO) 0.5 X 10^3 (0.0-1.0); MONOCYTES % (AUTO) 6 % (0-12); NEUTROPHILS # (AUTO) 4.5 X 10^3 (1.8-7.8); NEUTROPHILS % (AUTO) 57 % (42-75); PLATELET COUNT 189 10^3/uL (130-400); RED BLOOD COUNT 5.04 10^6/uL (4.35-5.85); RED CELL DISTRIBUTION WIDTH 13.5 % (10.0-14.5)
[2017-06-16] MEDS: LEVOTHYROXINE 50 MCG (LEVOTHROID) TAB PO SCH (05:19)
[2017-06-16 05:36] LABS: ANION GAP 11 MMOL/L (5-14); BLOOD UREA NITROGEN 10 MG/DL (7-18); BUN/CREATININE RATIO 11; CALCIUM 9.1 MG/DL (8.5-10.1); CARBON DIOXIDE 21 MMOL/L (21-32); CHLORIDE 112 MMOL/L (98-107); CREATININE SERUM 0.92 MG/DL (0.60-1.30); GFR ESTIMATED > 60; GLUCOSE 93 MG/DL (70-105); MAGNESIUM 1.9 MG/DL (1.8-2.4); PHOSPHORUS 3.2 MG/DL (2.3-4.7); POTASSIUM 3.8 MMOL/L (3.6-5.0); SODIUM 144 MMOL/L (135-145)
[2017-06-16] MEDS: DILTIAZEM 240 MG (CARDIZEM CD) CAP PO SCH (07:55)
[2017-06-16] MEDS: APIXABAN 5 MG (ELIQUIS) TABLET PO SCH (07:55)
[2017-06-16] MEDS: ASPIRIN E.C. 81 MG (ECOTRIN) TAB PO SCH (07:55)
--- NOTE | 2017-06-16 08:20 | Diagnostic Imaging Report ---
INDICATION: Atrial fibrillation. Nausea, vomiting, and diarrhea. COMPARISON: 06/15/2017 FINDINGS: Single frontal view of the chest demonstrates stable mild cardiomegaly. Pulmonary vasculature, however, is within normal limits. The lungs are well aerated and clear. No large pleural effusion or pneumothorax is seen. The visualized osseous structures show no acute abnormalities. IMPRESSION: 1. Mild cardiomegaly, but no evidence of failure or focal infiltrate. Dictated by: Dictated on workstation # [id number]
[2017-06-16] MEDS ORDERED: LIDOCAINE 2% VISCOUS 15 ML UDC PO NR (10:30)
[2017-06-16] MEDS ORDERED: DILT240C63 PO (10:51)
[2017-06-16] MEDS ORDERED: APIX5TAB PO (10:55)
--- NOTE | 2017-06-16 11:04 | Discharge Summary-Hospitalist ---
Diagnosis/Chief Complaint Date of Admission Jun 14, 2017 at 10:54 Date of Discharge Admission Diagnosis AF w/RVR Discharge Diagnosis (1) Atrial fibrillation with rapid ventricular response Status: Acute (2) Hypothyroidism Status: Chronic (3) Nausea Status: Acute Assessment & Plan: Cinthya Discharge Summary Discharge Physical Examination Allergies: Coded Allergies: No Known Drug Allergies (Verified , 08/21/08) Vitals & I&Os Vital Signs Date Time Temp Pulse Resp B/P (MAP) Pulse Ox O2 Delivery O2 Flow Rate FiO2 06/16/17 07:00 72 06/16/17 06:00 13 137/77 Room Air 06/16/17 04:00 95 06/16/17 04:00 98.9 Hospital Course Mrs. Ayala presented emergency room feeling quite weak. She's had chronic atrial fibrillation for at least the past several years. She did not felt well for the past several weeks and presented my office last Thursday where she was in atrial fibrillation with a ventricular response in the 110-1 20 bpm range. She taken bisoprolol the past but felt the medicine cause fatigue and had been off the medication asymptomatic for many months. She was not in acute distress at that time and was started on diltiazem 180 mg daily. She initially felt a little bit better but over the weekend had several episodes of nausea with loose stools. This recurred the night before her admission and she had a presyncopal episode with increased fatigue. This prompted her visit to the emergency room where she was noted to be in atrial fibrillation with rapid ventricular response in the 130-1 50 bpm range. Baseline labs including CMP and CBC were unremarkable. She'll only been on aspirin as her previous chadsvasc score was 1. 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 Dr. New. She's had no evidence for recurrence. he was given a dose of amiodarone and started on a diltiazem drip with control of heart rate and no further nausea. Echocardiogram was little changed her left atrium was mildly dilated at 4 with an ejection fraction of 55 percent and no evidence for LVH mild to moderate tricuspid insufficiency was present with a PA pressure estimated at 30 mmHg. Later this morning she is scheduled for DAWN and if no evidence for thrombus formation is noted she will undergo electrical cardioversion and discharged to follow if okay with Dr. Duncan. At this point if no changes are made Medications will include Eliquis and diltiazem LA dose increase to 240 mg with any further changes per Dr. Duncan. we'll plan to see Mrs. Ayala back in the office in 1-2 weeks for follow-up. Dr. Duncan be seeing the patient at his discretion as well. Labs (last 24 hrs) Laboratory Tests 06/16/17 04:55: White Blood Count 8.0, Red Blood Count 5.04, Hemoglobin 14.1, Hematocrit 43, Mean Corpuscular Volume 86, Mean Corpuscular Hemoglobin 28, Mean Corpuscular Hemoglobin Concent 33, Red Cell Distribution Width 13.5, Platelet Count 189, Mean Platelet Volume 10.7H, Neutrophils (%) (Auto) 57, Lymphocytes (%) (Auto) 34 , Monocytes (%) (Auto) 6, Eosinophils (%) (Auto) 3, Basophils (%) (Auto) 1, Neutrophils # (Auto) 4.5, Lymphocytes # (Auto) 2.8, Monocytes # (Auto) 0.5, Eosinophils # (Auto) 0.2, Basophils # (Auto) 0.0, Sodium Level 144, Potassium Level 3.8, Chloride Level 112H, Carbon Dioxide Level 21, Anion Gap 11, Blood Urea Nitrogen 10, Creatinine 0.92, Estimat Glomerular Filtration Rate > 60, BUN/ Creatinine Ratio 11, Glucose Level 93, Calcium Level 9.1, Phosphorus Level 3.2, Magnesium Level 1.9 Pending Labs Laboratory Tests 06/16/17 04:55: White Blood Count 8.0, Red Blood Count 5.04, Hemoglobin 14.1, Hematocrit 43, Mean Corpuscular Volume 86, Mean Corpuscular Hemoglobin 28, Mean Corpuscular Hemoglobin Concent 33, Red Cell Distribution Width 13.5, Platelet Count 189, Mean Platelet Volume 10.7, Neutrophils (%) (Auto) 57, Lymphocytes (%) (Auto) 34 , Monocytes (%) (Auto) 6, Eosinophils (%) (Auto) 3, Basophils (%) (Auto) 1, Neutrophils # (Auto) 4.5, Lymphocytes # (Auto) 2.8, Monocytes # (Auto) 0.5, Eosinophils # (Auto) 0.2, Basophils # (Auto) 0.0, Sodium Level 144, Potassium Level 3.8, Chloride Level 112, Carbon Dioxide Level 21, Anion Gap 11, Blood Urea Nitrogen 10, Creatinine 0.92, Estimat Glomerular Filtration Rate > 60, BUN/ Creatinine Ratio 11, Glucose Level 93, Calcium Level 9.1, Phosphorus Level 3.2, Magnesium Level 1.9 Discharge Home Medications: Active Scripts Active Eliquis (Apixaban) 5 Mg Tablet 5 Mg PO BID 30 Days Diltiazem 24Hr Cd (Diltiazem HCl) 240 Mg Cap.er.24h 240 Mg PO DAILY 30 Days Reported Pepcid (Famotidine) 20 Mg Tablet 20 Mg PO BID PRN Calcium 500 + Vit D Caplet (Calcium Carbonate/Vitamin D3) 1 Each Tablet 1 Tab PO DAILY Vitamin D-3 (Cholecalciferol (Vitamin D3)) 2,000 Unit Capsule 2,000 Unit PO DAILY Ibuprofen 400 Mg Tablet 400 Mg PO Q6H PRN TAKES 2 (200MG) TABLETS Aspirin EC (Aspirin) 81 Mg Tablet.dr 81 Mg PO DAILY Levothyroxine Sodium 50 Mcg Tablet 50 Mcg PO DAILY Cartia Xt (Diltiazem HCl) 180 Mg Cap.er.24h 180 Mg PO DAILY Instructions to patient/family Please see electronic discharge instructions given to patient. Clinical Quality Measures DVT/VTE Risk/Contraindication: Risk Factor Score Per Nursin RFS Level Per Nursing on Admit: 2=Moderate Copy Copies To 1: COLLEEN CRUMP MD Copies To 2: Sen DUNCAN MD Problem Qualifiers (1) Hypothyroidism: Hypothyroidism type: acquired Qualified Codes: E03.9 - Hypothyroidism, unspecified COLLEEN CRUMP MD Jun 16, 2017 11:04
[2017-06-16] MEDS ORDERED: MIDAZOLAM 2 MG/2 ML (VERSED) VIAL ONE (11:07)
[2017-06-16] MEDS ORDERED: proPOfol 200 MG/20 ML (DIPRIVAN) VIAL IV ONE (11:07)
--- NOTE | 2017-06-16 12:27 | Cardiac Procedure Note-CS/ASA ---
Pre-Procedure Note Pre-Op Procedure Note H&P Reviewed The H&P was reviewed, patient examined and no changes noted. Date H&P Reviewed: Jun 16, 2017 Time H&P Reviewed: 11:30 Conscious Sedation Pre-Proced Time Reviewed: 11:30 ASA Class: 3 Airway Mallampati Classification: ([place] appropriate class) I. II. III, IV Lungs Heart ASA score ASA 1: a normal healthy patient ASA 2: a patient with a mild systemic disease (mid diabetes, controlled hypertension, obesity ASA 3: a patient with a severe systemic disease that limits activity (angina , COPD, prior Myocardial infarction) ASA 4: a patient with an incapacitating disease that is a constant threat to life (CHF, renal failure) ASA 5: a moribund patient not expected to survive 24 hrs. (ruptured aneurysm) ASA 6: a declared brain patient whose organs are being harvested. For emergent operations, add the letter E after the classification Grade 1 Sedation Plan: Analgesia, Amnesia, Plan communicated to team members, Discussed options with patient/fam, Discussed risks with patient/fam Note The patient is an appropriate candidate to undergo the planned procedure, sedation, and anesthesia. The patient immediately re-assessed prior to indication. Sen DUNCAN MD Jun 16, 2017 12:27 pm
--- NOTE | 2017-06-16 12:28 | Cardiology Post Procedure Note ---
Post-Procedure Note Physician (s)/Sorority Mother (s) Physician Sen DUNCAN MD Pre-Procedure Diagnosis Pre-Procedure Diagnosis: AF with RVR Post-Procedure Note Procedure Start Date: Jun 16, 2017 Procedure Start Time: 11:30 Name of Procedure: DAWN, Direct Cardioversion Findings/Procedure Note No LA/ELISHA thrombus, Successful Cardioversion. Anesthesia Type: Conscious Sedation Estimated blood loss (mL): none Contrast Amount: none Post-Procedure Diagnosis Post-operative diagnosis: No LA/ELISHA thrombus, successful cardioversion Sen DUNCAN MD Jun 16, 2017 12:28 pm
[2017-06-16] MEDS ORDERED: meTOprolol TARTRATE 50 MG (LOPRESSOR) TAB PO SCH (12:45)
--- NOTE | 2017-06-16 13:20 | Progress Note-Standard ---
Standard Progress Note Progress Notes/Assess & Plan Date Seen by Provider: Jun 16, 2017 Time Seen by Provider: 11:50 Progress/Assessment & Plan Anesthesia Note ([id number]) Called to ICU 4 for sedation (MAC) for a DAWN/Cardioversion. Pt S/E. Versed 2 mg IV and Propofol 160 mg IV in divided doses given for sedation. VSS throughout and pt maintained spontaneous ventilation throughout with O2 via N.C. at 3 L/ min. Pt returned to sinus rhythm and tolerated the procedure well. Will be available if needed. GENNARO KWOK DO Jun 16, 2017 13:20
--- NOTE | 2017-06-16 14:42 | Cardiology Progress Note ---
Cardiology SOAP Progress Note Subjective: atrial fibrillation Objective: I&O/Vital Signs Vital Sign - Last 12Hours 06/16/17 06/16/17 06/16/17 06/16/17 03:00 04:00 04:00 04:00 Temp 98.9 Pulse 63 67 Resp 10 17 B/P (MAP) 114/86 108/86 Pulse Ox 95 O2 Delivery Room Air Room Air Room Air Room Air 06/16/17 06/16/17 06/16/17 06/16/17 05:00 06:00 07:00 13:00 Pulse 72 66 72 52 Resp 15 13 B/P (MAP) 125/78 137/77 O2 Delivery Room Air Room Air Weight (Pounds): 177 Weight (Ounces): 5.0 Weight (Calculated Kilograms): 80.048791 Constitutional: No appears stated age, No AAO x 3, No apparent distress, No PERRL, No well-developed, No well-nourished, No other Respiratory: No accessory muscle use, No respiratory distress, No chest tender , No chest expansion is symmetric, No chest is bilaterally symmetric, No lungs clear to percussion, No lungs clear to auscultation, No crackles, No rhonchi, No rales, No stridor, No wheezing, No pleural rub, No other Cardiovascular: irregularly irregular, tachycardia, S1 and S2 Gastrointestional: No tender, No soft, No round, No distended, No pulsatile mass, No organomegaly, No guarding, No rebound, No tenderness, No hernia, No mass, No audible bowel sounds, No abnormal bowel sounds, No abdominal bruits, No spleenomegaly, No other Extremities: No normal range of motion, No non-tender, No normal inspection, No pedal edema, No calf tenderness, No normal capillary refill, No pelvis stable , No calf tenderness, No inflammation, No pedal edema, No slow capillary refill , No swelling, No other, No abrasion, No clubbing, No cyanosis, No ecchymosis, No laceration, No no lower extremity edema bilateral, No significant edema, No tenderness, No wound Neurologic/Psychiatric: No cro II-XII nml as tested, No no motor/sensory deficits, No alert, No normal mood/affect, No oriented x 3, No abnormal cerebellar tests, No abnormal cro II-XII, No abnormal gait, No aphasia, No EOM palsy, No facial droop, No motor weakness, No sensory deficit, No depressed affect, No disoriented x 3, No other, No grossly intact, No power is 5/5 both on sides Skin: No normal color, No warm/dry, No cyanosis, No cool, No diaphoresis, No damp, No ecchymosis, No jaundice, No mottled, No pallor, No rash, No tattoos/ piercings, No ulcerations, No rash on exposed areas, No ulcerations on exposed areas, No other Results/Procedures: Labs Laboratory Tests 06/16/17 04:55: White Blood Count 8.0, Red Blood Count 5.04, Hemoglobin 14.1, Hematocrit 43, Mean Corpuscular Volume 86, Mean Corpuscular Hemoglobin 28, Mean Corpuscular Hemoglobin Concent 33, Red Cell Distribution Width 13.5, Platelet Count 189, Mean Platelet Volume 10.7H, Neutrophils (%) (Auto) 57, Lymphocytes (%) (Auto) 34 , Monocytes (%) (Auto) 6, Eosinophils (%) (Auto) 3, Basophils (%) (Auto) 1, Neutrophils # (Auto) 4.5, Lymphocytes # (Auto) 2.8, Monocytes # (Auto) 0.5, Eosinophils # (Auto) 0.2, Basophils # (Auto) 0.0, Sodium Level 144, Potassium Level 3.8, Chloride Level 112H, Carbon Dioxide Level 21, Anion Gap 11, Blood Urea Nitrogen 10, Creatinine 0.92, Estimat Glomerular Filtration Rate > 60, BUN/ Creatinine Ratio 11, Glucose Level 93, Calcium Level 9.1, Phosphorus Level 3.2, Magnesium Level 1.9 A/P: Assessment/Dx: 1. Atrial fibrillation with rapid ventricular rate, 2. Hypertension, 3. Syncope, 4. Hypothyroidism Plan: Patient is still in atrial fibrillation and rapid ventricular rate. We are trying to transition to oral Cardizem. We gave 240 mg of long-acting Cardizem in the morning. DC Cardizem infusion. DC amiodarone infusion. transesophageal echocardiogram and cardioversion today. Echocardiogram Telemetry Blood pressure control with Cardizem for now. CHADSVASC score is 2 for gender and HTN. So NOAC are indicated. Possible sleep apnea - sleep study as outpatient. TSH normal Thank you for your consultation. Please call me if you have any questions. Carlo Lake MD, FACP, FACC, FSCAI, FHRS, CCDS Interventional Cardiology Cardiac Electrophysiology Vascular Medicine and Endovascular Interventions Sen LAKE MD Jun 16, 2017 2:42 pm
[2017-06-16] MEDS ORDERED: METO50TA2 PO (16:04)
== END 2017-06-16 17:00 | disposition home or self-care (01) | DRG 310 ==
LOC: EDUNIT# 08:08 → ER 08:10 → ICU 10:54
PROVIDERS: ADMIT Internal Medicine; ATTEND Internal Medicine
PROC: 5A2204Z Restoration of Cardiac Rhythm, Single (ICD-10-PCS; principal; 2017-06-16)
DX: I48.0 Paroxysmal atrial fibrillation (principal); R11.0 Nausea; R19.7 Diarrhea, unspecified; E03.9 Hypothyroidism, unspecified; I10 Essential (primary) hypertension; R55 Syncope and collapse
CPT/HCPCS: 36415; 71010; 80048; 80053; 80061; 81000; 83735; 83874; 84100; 84439; 84443; 84484; 85025; 85610; 85730; 93005; 93041; 93306; 93312; 93320; 93325; 96361; 96365; 96366; 96375

== ENCOUNTER → 2017-08-19 | Outpatient (CLI) | payer BC ==
[~2017-08-19] MED LIST changes: +APIX5TAB PO; +ASPI-983 PO; +CALC-78 PO; +CHOL20002 PO; +DILT180C54 PO; +DILT240C63 PO; +FAMO-119 PO; +IBUP-1779 PO; +LEVO50TA6 PO; +METO50TA15 PO
--- NOTE | 2017-08-19 16:55 | Diagnostic Imaging Report ---
Transabdominal and transvaginal pelvic ultrasound. INDICATION: Left adnexal cyst seen on CT of 07/03/2017. FINDINGS: The uterus is 5.2 x 3.6 x 2.6 cm in size. The endometrial stripe is 0.3 cm in thickness. Slightly heterogeneous myometrium is seen with no discrete mass. The ovaries are not seen. A simple-appearing cyst measuring 2.9 x 2 7 x 2.2 cm in the left adnexal area however is noted. No solid component is identified. This is only seen on the transvaginal projection. IMPRESSION: Nonspecific simple-appearing 2.9 cm left adnexal cyst. The ovaries are not seen and the cyst tissue of origin is not confirmed on this study. Followup study is recommended to ensure stability. Dictated by: Dictated on workstation # [id number]
== END ==
LOC: RAD 13:50
PROVIDERS: ATTEND Obstetrics & Gynecology
DX: N83.201 Unspecified ovarian cyst, right side (principal)
CPT/HCPCS: 76830; 76856

== ENCOUNTER 2017-10-02 20:00 | Outpatient (CLI) | payer BC | END 2017-10-03 06:00 | disposition home or self-care (01) | LOC: SLEEP 20:00 | PROVIDERS: ATTEND Nurse Practitioner Family | DX: G47.33 Obstructive sleep apnea (adult) (pediatric) (principal); I10 Essential (primary) hypertension | CPT/HCPCS: 95810 ==

== ENCOUNTER → 2018-01-12 | Outpatient (CLI) | payer BC ==
--- NOTE | 2018-01-12 19:09 | Diagnostic Imaging Report ---
INDICATION: Routine screening. Comparison is made with prior study from 08/29/2015 and 09/05/2013. 2-D and 3-D bilateral screening mammography was performed with CAD. The current study was also evaluated with a Computer Aided Detection (CAD) system. FINDINGS: Both breasts remain heterogeneously dense, limiting the sensitivity of mammography. The parenchymal pattern is stable. There are benign calcifications bilaterally. No mass or malignant-appearing microcalcifications are seen. The axillae are unremarkable. IMPRESSION: No mammographic features suspicious for malignancy are identified. ACR BI-RADS Category 2: Benign findings. Result letter will be mailed to the patient. Note: At least 10% of breast cancer is not imaged by mammography. Dictated by: Dictated on workstation # [id number]
== END ==
LOC: RAD 08:42
PROVIDERS: ATTEND Internal Medicine
DX: Z12.31 Encounter for screening mammogram for malignant neoplasm of breast (principal)
CPT/HCPCS: 77067

== ENCOUNTER → 2018-09-15 | Outpatient (CLI) | payer BC ==
[~2018-09-15] MED LIST changes: +BARIUM SUSPENSION 105% (LIQUID POLIBAR PLUS) 240 ML/DOSE PO ONE; +BARIUM SUSPENSION 60% (LIQUID EZ PAQUE) 240 ML DOSE PO ONE; -DILT240C63 PO; +DILT240C97 PO
--- NOTE | 2018-09-15 10:24 | Diagnostic Imaging Report ---
INDICATION: Right-sided abdominal pain with severe vomiting and diarrhea. FINDINGS: Patient ingested effervescent crystals as well as thin and thick barium and imaging of the esophagus, stomach and small bowel was performed. A total of 1 minute 52 seconds of fluoroscopy was utilized. Preliminary radiograph is unremarkable. The esophagus has a smooth contour. No mass or stricture is seen. No gastroesophageal reflux was demonstrated. A very small sliding-type hiatal hernia is noted. There is prompt emptying into the stomach. The stomach has a normal configuration. No mass or ulceration is identified. The duodenal bulb is without deformity. There is prompt emptying into the small bowel loops which appear to be normal caliber. Mucosal fold pattern is unremarkable. Transit time is unremarkable. Terminal ileum has a normal appearance. The visualized right colon is unremarkable. No intrinsic or extrinsic mass is seen. IMPRESSION: Essentially unremarkable upper GI and small bowel follow-through. Dictated by: Dictated on workstation # [id number]
== END ==
LOC: RAD 08:24
PROVIDERS: ATTEND Internal Medicine
DX: R10.11 Right upper quadrant pain (principal); R11.2 Nausea with vomiting, unspecified; R19.7 Diarrhea, unspecified; R68.81 Early satiety
CPT/HCPCS: 74249

== ENCOUNTER 2018-10-29 13:20 | Emergency (ER) | payer BC ==
[~2018-10-29] VITALS: Ht 170.2 cm; Wt 79.4 kg
[~2018-10-29 13:20] MED LIST changes: -BARIUM SUSPENSION 105% (LIQUID POLIBAR PLUS) 240 ML/DOSE PO ONE; -BARIUM SUSPENSION 60% (LIQUID EZ PAQUE) 240 ML DOSE PO ONE
--- NOTE | 2018-10-29 14:39 | ED Cardiac General ---
History of Present Illness General Stated Complaint: LIGHT HEADED/SHAKY Source: patient Exam Limitations: no limitations History of Present Illness Date Seen by Provider: Oct 29, 2018 Time Seen by Provider: 14:35 Initial Comments To ER with lightheadedness and palpitations that began at about 1 AM, about 12 hours ago. She denies any chest pain. She has a history of atrial fibrillation and she is on flecainide. She took an extra dose of flecainide today. This did not help with her symptoms. She has had several cardioversions and one cardiac ablation. Since the ablation she's had a few episodes of atrial fibrillation with tachycardia but these episodes do not last longer than 30-60 seconds. This episode has been persistent for about 12 hours. She is on Xarelto. She follows with Dr. Sorenson locally and for cardiology she sees Dr. Olson at [facility]. Severity: moderate NTG SL INFANTRY SENIOR SERGEANT: No ASA po INFANTRY SENIOR SERGEANT: No Allergies and Home Medications Allergies Coded Allergies: No Known Drug Allergies (Verified , 08/21/08) Home Medications Apixaban 5 Mg Tablet, 5 MG PO BID Prescribed by: COLLEEN SORENSON on 06/16/17 1055 Calcium Carbonate/Vitamin D3 1 Each Tablet, 1 TAB PO DAILY, (Reported) Cholecalciferol (Vitamin D3) 2,000 Unit Capsule, 2,000 UNIT PO DAILY, (Reported) Diltiazem HCl 240 Mg Cap.er.24h, 240 MG PO DAILY Prescribed by: COLLEEN SORENSON on 06/16/17 1051 Famotidine 20 Mg Tablet, 20 MG PO BID PRN for HEARTBURN, (Reported) Levothyroxine Sodium 50 Mcg Tablet, 50 MCG PO DAILY, (Reported) Metoprolol Tartrate 50 Mg Tablet, 50 MG PO BID Prescribed by: BLANCHE CASTANO on 06/16/17 1604 Patient Home Medication List Home Medication List Reviewed: Yes Review of Systems Review of Systems Constitutional: see HPI; No chills, No fever EENTM: No Symptoms Reported Respiratory: See HPI; Denies Cough Cardiovascular: See HPI, Palpitations Gastrointestinal: No Symptoms Reported Genitourinary: No Symptoms Reported Musculoskeletal: no symptoms reported Skin: no symptoms reported Psychiatric/Neurological: No Symptoms Reported Endocrine: No Symptoms Reported Past Efzlxfu-Bavtij-Yvvsty Hx Patient Social History Recent Foreign Travel: No Contact w/Someone Who Travel: No Recent Hopitalizations: No Immunizations Up To Date Date of Influenza Vaccine: Jul 15, 2014 Seasonal Allergies Seasonal Allergies: No Past Medical History Surgeries: Yes (LEFT LEG LOWER PLATE, HEMORRHOIDECTOMY, SKIN CANCER, ) Thyroidectomy Respiratory: No Cardiac: Yes Atrial Fibrillation Neurological: No Reproductive Disorders: No Female Reproductive Disorders: Denies Sexually Transmitted Disease: No HIV/AIDS: No Genitourinary: No Gastrointestinal: Yes Irritable Bowel Musculoskeletal: Yes (PLATE IN LEFT LEG) Endocrine: Yes (thyroidectomy) Loss of Vision: Denies Hearing Impairment: Denies Cancer: Yes Skin Psychosocial: No Integumentary: Yes (melanoma to r arm, removed) Blood Disorders: No Adverse Reaction/Blood Tranf: No Physical Exam Vital Signs Vital Signs - First Documented 10/29/18 14:05 Temp 97.9 Pulse 155 Resp 20 B/P (MAP) 145/95 (112) Capillary Refill : Height, Weight, BMI Height: 5'5.00" Weight: 177lbs. 5.0oz. 80.387425hs; 28.3 BMI Method:Estimated General Appearance: No Apparent Distress, WD/WN HEENT: PERRL/EOMI, TMs Normal Neck: Full Range of Motion, Normal Inspection Respiratory: Normal Breath Sounds, No Accessory Muscle Use, No Respiratory Distress Cardiovascular: Normal Peripheral Pulses, Tachycardia Gastrointestinal: Normal Bowel Sounds, Non Tender, Soft Extremity: Normal Capillary Refill, Normal Inspection Neurologic/Psychiatric: Alert, Oriented x3 Skin: Normal Color, Warm/Dry Progress/Results/Core Measures Results/Orders Lab Results Laboratory Tests Test 10/29/18 14:30 Range/Units White Blood Count 10.1 4.3-11.0 10^3/uL Red Blood Count 5.27 4.35-5.85 10^6/uL Hemoglobin 14.8 11.5-16.0 G/DL Hematocrit 45 35-52 % Mean Corpuscular Volume 86 80-99 FL Mean Corpuscular Hemoglobin 28 25-34 PG Mean Corpuscular Hemoglobin Concent 33 32-36 G/DL Red Cell Distribution Width 13.5 10.0-14.5 % Platelet Count 186 130-400 10^3/uL Mean Platelet Volume 11.9 H 7.4-10.4 FL Neutrophils (%) (Auto) 74 42-75 % Lymphocytes (%) (Auto) 19 12-44 % Monocytes (%) (Auto) 5 0-12 % Eosinophils (%) (Auto) 0 0-10 % Basophils (%) (Auto) 0 0-10 % Neutrophils # (Auto) 7.5 1.8-7.8 X 10^3 Lymphocytes # (Auto) 2.0 1.0-4.0 X 10^3 Monocytes # (Auto) 0.5 0.0-1.0 X 10^3 Eosinophils # (Auto) 0.0 0.0-0.3 10^3/uL Basophils # (Auto) 0.0 0.0-0.1 10^3/uL Sodium Level 142 135-145 MMOL/L Potassium Level 3.7 3.6-5.0 MMOL/L Chloride Level 106 98-107 MMOL/L Carbon Dioxide Level 25 21-32 MMOL/L Anion Gap 11 5-14 MMOL/L Blood Urea Nitrogen 14 7-18 MG/DL Creatinine 1.00 0.60-1.30 MG/DL Estimat Glomerular Filtration Rate 56 BUN/Creatinine Ratio 14 Glucose Level 99 70-105 MG/DL Calcium Level 10.0 8.5-10.1 MG/DL Corrected Calcium 9.7 8.5-10.1 MG/DL Magnesium Level 2.2 1.8-2.4 MG/DL Total Bilirubin 0.5 0.1-1.0 MG/DL Aspartate Amino Transf (AST/SGOT) 20 5-34 U/L Alanine Aminotransferase (ALT/SGPT) 15 0-55 U/L Alkaline Phosphatase 81 40-136 U/L Troponin I 0.031 H <0.028 NG/ML Total Protein 7.3 6.4-8.2 GM/DL Albumin 4.4 3.2-4.5 GM/DL Thyroid Stimulating Hormone (TSH) 1.58 0.35-4.94 UIU/ML My Orders Orders - KIAN CANDELARIA APRN Cbc With Automated Diff (10/29/18 14:31) Comprehensive Metabolic Panel (10/29/18 14:31) Thyroid Stimulating Hormone (10/29/18 14:31) Magnesium (10/29/18 14:31) Troponin I (10/29/18 14:31) Ekg Tracing (10/29/18 14:31) Iv Heplock-Insert (Order) (10/29/18 14:31) Ns Iv 1000 Ml (Sodium Chloride 0.9%) (10/29/18 14:45) Ns (Ivpb) (Sodium C... W/Diltiazem Injec (10/29/18 14:45) Diltiazem Cd 24 Hr Capsule (Cardizem Cd (10/30/18 09:00) Medications Given in ED Current Medications Medications Dose Ordered Sig/Raine Route Start Time Stop Time Status Last Admin Dose Admin Diltiazem HCl 120 mg DAILY ONCE PO 10/30/18 09:00 10/30/18 09:01 10/29/18 15:14 120 MG Vital Signs/I&O 10/29/18 14:05 Temp 97.9 Pulse 155 Resp 20 B/P (MAP) 145/95 (112) Departure Communication (Admissions) The Cardizem drip was being mixed the patient spontaneously converted to normal sinus rhythm without ectopy. She remained in normal sinus rhythm without ectopy a rate in the 60s to 70s for at least one hour I spoke with Dr. Schmitz, hospitalist at [facility], I spoke with Dr. Marquez on- call for cardiology at [facility]. She had a stress test last year that showed no evidence of ischemia, she had a coronary calcium score of 18 which he reports is very low, not indicative of coronary artery disease. He does not feel that she needs to have stress test, he is okay with discharge to home since she is symptom-free and without changes on her EKG from prior. Certainly there is no ST elevation. She is already scheduled to follow-up with Dr. Olson on Thursday11/02/18. Impression Primary Impression: Elevated troponin Additional Impression: Atrial fibrillation Qualified Codes: I48.91 - Unspecified atrial fibrillation Disposition: HOME, SELF-CARE Condition: Against Medical Advice Departure-Patient Inst. Decision time for Depature: 16:18 Referrals: COLLEEN SORENSON MD (PCP/Family) Primary Care Physician Patient Instructions: Atrial Fibrillation (DC) Add. Discharge Instructions: 1. Return to ER for any concerns 2. Follow-up with your doctor next week as scheduled 3. Copy Copies To 1: COLLEEN SORENSON MD, PETER J APRN Oct 29, 2018 14:39
[2018-10-29] MEDS ORDERED: NS IV 1000 ML 1,000 ML IV SCH (14:45)
[2018-10-29] MEDS ORDERED: DILTIAZEM INJECTION 125 MG in NS (IVPB) 100 ML IV SCH (14:45)
[2018-10-29 14:47] LABS: BASOPHILS % (AUTO) 0 % (0-10); EOSINOPHILS % (AUTO) 0 % (0-10); HEMATOCRIT 45 % (35-52); HEMOGLOBIN 14.8 G/DL (11.5-16.0); LYMPHOCYTES % (AUTO) 19 % (12-44); MEAN CORPUSCULAR HEMOGLOBIN 28 PG (25-34); MEAN CORPUSCULAR HGB CONC 33 G/DL (32-36); MEAN CORPUSCULAR VOLUME 86 FL (80-99); MEAN PLATELET VOLUME 11.9 FL (7.4-10.4); MONOCYTES # (AUTO) 0.5 X 10^3 (0.0-1.0); MONOCYTES % (AUTO) 5 % (0-12); NEUTROPHILS # (AUTO) 7.5 X 10^3 (1.8-7.8); NEUTROPHILS % (AUTO) 74 % (42-75); PLATELET COUNT 186 10^3/uL (130-400); RED CELL DISTRIBUTION WIDTH 13.5 % (10.0-14.5); WHITE BLOOD COUNT 10.1 10^3/uL (4.3-11.0)
[2018-10-29 15:04] LABS: ALBUMIN 4.4 GM/DL (3.2-4.5); BILIRUBIN,TOTAL 0.5 MG/DL (0.1-1.0); MAGNESIUM 2.2 MG/DL (1.8-2.4); POTASSIUM 3.7 MMOL/L (3.6-5.0); TOTAL PROTEIN 7.3 GM/DL (6.4-8.2)
[2018-10-29 16:32] VITALS: BP 122/75
[2018-10-30] MEDS ORDERED: DILTIAZEM 120 MG (CARDIZEM CD) CAP PO ONE (09:00)
--- OUTSIDE RECORDS SUMMARY | 2018-10-31 09:47 | XMS REPORT | Encounter Summary ---
Author Author [facility] Organization [facility] Address Unknown Phone Unavailable Care Team Providers Care Medical Data Entry Clerk Name Role Phone Hermann Sorenson MD PCP Reason for Visit * Reason Comments Pre-visit chart prep Encounter Details Date Type Department Care Team Description 08/16/2018 Documentation [facility] Cynthia Nicholson APRN Pre- visit chart prep Cardiovascular [address] [facility] [address] [place] [id number] [address] [place] [address] [phone] Social History Tobacco Use Types Packs/Day Years Used Date Never Smoker Smokeless Tobacco: Never Used Alcohol Use Drinks/Week oz/Week Comments No Sex Assigned at Date Recorded Not on file as of this encounter Plan of Treatment Date Type Specialty Care Team Description 11/02/2018 Office Visit Cardiology Mariia Gillis MD [address] [facility] [address] [place] [address] [phone] 11/29/2018 [place] [address] [facility] [address] [place], [place] [id number] as of this encounter Procedures Procedure Name Priority Date/Time Associated Diagnosis Comments LAB OUTSIDE RECORD Routine 08/25/2018 12:00 AM PHOTO STYLIST LAB OUTSIDE RECORD Routine 08/09/2018 12:00 AM PHOTO STYLIST LIPID PANEL Routine 08/09/2018 Results for this 12:00 AM PHOTO STYLIST procedure are in the results section. in this encounter Results * Lab Outside Record (08/25/2018) Narrative Performed At * Lipid Panel (08/09/2018) Triglycerides 91 40 - 150 mg/dL HDL Cholesterol 77 (A) 50 - 70 mg/dL LDL Cholesterol 86 100 mg/dL Cholesterol/HDL Ratio 2.4 5.0 Non-HDL Cholesterol 105 130 Cholesterol 182 200 Specimen Blood Narrative Performed At * Lab Outside Record (08/09/2018) Narrative Performed At in this encounter Visit Diagnoses Not on filein this encounter
--- OUTSIDE RECORDS SUMMARY | 2018-10-31 09:47 | XMS REPORT | Clinical Summary ---
Author Author [facility] Organization [facility] Address Unknown Phone Unavailable Care Team Providers Care Strategic Business Development Name Role Phone Hermann Sorenson MD PCP Allergies No Known Allergies Current Medications Prescription Sig. Disp. Refills Start End Date Status Date levothyroxine (SYNTHROID, Take 50 mcg by mouth 12 06/04/20 Active LEVOTHROID) 50 MCG tablet daily. 17 cholecalciferol, vitamin Take 1 capsule by mouth Active D3, (VITAMIN D3) 2,000 daily. unit cap capsule calcium Take 1 tablet by mouth Active carb,[id number] D3 daily. (CALCIUM MAGNESIUM + D) 500-250-200 mg-mg-unit Tab XARELTO 20 mg tablet Take 20 mg by mouth 08/18/20 Active daily. 18 pantoprazole (PROTONIX) Take 40 mg by mouth 08/19/20 Active 40 MG tablet daily. 18 prochlorperazine as needed. 08/25/20 Active (COMPAZINE) 10 MG tablet 18 flecainide (TAMBOCOR) 50 Take 1.5 tablets (75 mg 270 tablet 1 Active MG tablet total) by mouth 2 (two) 19 times a day. flecainide (TAMBOCOR) 100 Take 0.5 tablets (50 mg 180 tablet 0 10/30/19 Discontin MG tablet total) by mouth 2 (two) 18 19 ued times a day. Active Problems Problem Noted Date S/P ablation of atrial fibrillation 12/29/2017 Paroxysmal atrial fibrillation (HCC) 10/07/2017 Essential hypertension Atrial fibrillation (HCC) half-way current use of antiarrhythmic drug half-way current use of anticoagulant GERD (gastroesophageal reflux disease) Hypothyroidism Gastric paresis Resolved Problems Problem Noted Date Resolved Date Pre-operative cardiovascular examination 10/27/2017 Encounters Date Type Specialty Care Team Description 10/29/2018 Documentation Cardiology Marcos Olson MD 10/29/2018 Orders Only Cardiology Veronica Grady, [place] Paroxysmal atrial fibrillation (HCC) (Primary Dx) 10/29/2018 Telephone Cardiology Yeny Szymanski RN Atrial fibrillation 10/28/2018 Documentation Gastroenterology Edilma Parada RN 09/09/2018 Office Visit Cardiology Cynthia Nicholson APRN Paroxysmal atrial fibrillation (HCC) (Primary Dx); Essential hypertension; medical terminologist current use of anticoagulant; medical terminologist current use of antiarrhythmic drug 09/07/2018 Abstract Cardiology Sarah Pacheco RN 08/16/2018 Documentation Cardiology Cynthia Nicholson APRN Pre-visit chart prep from Last 3 Months Family History Medical History Relation Name Comments Ulcerative colitis Brother Inflammatory bowel Mother disease Inflammatory bowel Sister disease Ulcerative colitis Sister Relation Name Status Comments Brother Father Mother Alive Sister Social History Tobacco Use Types Packs/Day Years Used Date Never Smoker Smokeless Tobacco: Never Used Tobacco Cessation: Counseling Given: No Alcohol Use Drinks/Week oz/Week Comments No Sex Assigned at Date Recorded Not on file Last Filed Vital Signs Vital Sign Reading Time Taken Blood Pressure 125/84 09/09/2018 9:21 AM TOOL CRIB ATTENDANT Pulse 70 09/09/2018 9:21 AM TOOL CRIB ATTENDANT Temperature 36.5 C (97.7 F) 11/26/2017 11:00 AM CDT Respiratory Rate 16 01/12/2018 1:16 PM CDT Oxygen Saturation 100% 01/12/2018 1:16 PM CDT Inhaled Oxygen - - Concentration Weight 79.8 kg (176 lb) 09/09/2018 9:21 AM TOOL CRIB ATTENDANT Height 170.2 cm (5' 7") 09/09/2018 9:21 AM TOOL CRIB ATTENDANT Body Mass Index 27.57 09/09/2018 9:21 AM TOOL CRIB ATTENDANT Plan of Treatment Date Type Specialty Care Team Description 11/02/2018 Office Visit Cardiology Mariia Gillis MD [address] [facility] [address] [place] [address] [phone] 11/29/2018 [place] [address] [facility] [address] [place] [address] [phone] Health Maintenance Due Date Last Done Comments Hepatitis C Screen 1955 Td # 1955 Cervical Cancer Screening 1974 via Pap Smear Mammogram Screening 2003 Zoster Vaccine# (1 of 2) 2003 Osteoporosis Screening 2018 Pneumococcal Immunization 2018 65+ (1 of 2 - PCV13) Fall Risk Assessment # 11/26/2018 11/26/2017 Colorectal Screening via 09/08/2020 09/08/2017, 09/08/2017 Colonoscopy Influenza Vaccine Completed 06/17/2018 Procedures Procedure Name Priority Date/Time Associated Diagnosis Comments EKG OUTSIDE RECORD Routine 10/29/2018 12:00 AM TOOL CRIB ATTENDANT ECG Routine 09/09/2018 Paroxysmal atrial Results for this 9:21 AM TOOL CRIB ATTENDANT fibrillation (HCC) procedure are in the Essential hypertension results section. LAB OUTSIDE RECORD Routine 08/25/2018 12:00 AM TOOL CRIB ATTENDANT LIPID PANEL Routine 08/09/2018 Results for this 12:00 AM TOOL CRIB ATTENDANT procedure are in the results section. LAB OUTSIDE RECORD Routine 08/09/2018 12:00 AM TOOL CRIB ATTENDANT ALANINE AMINOTRANSFERASE Routine 08/09/2018 Results for this 12:00 AM TOOL CRIB ATTENDANT procedure are in the results section. ASPARTATE Routine 08/09/2018 Results for this AMINOTRANSFERASE 12:00 AM TOOL CRIB ATTENDANT procedure are in the results section. GLUCOSE Routine 08/09/2018 Results for this 12:00 AM TOOL CRIB ATTENDANT procedure are in the results section. LIPID PANEL Routine 08/09/2018 Results for this 12:00 AM TOOL CRIB ATTENDANT procedure are in the results section. from Last 3 Months Results * EKG Outside Record (10/29/2018) Narrative Performed At * Electrocardiogram (ECG) (09/09/2018 9:21 AM) QRSd 84 [facility] QT 464 [facility] QTC 424 [facility] ECGHR 50 [facility] Narrative Performed At [facility] Test Date:2018-09-09 Pat Name: EPIFANIO AYALA Department: [facility] Room: Gender: Female Oil Tester: [id number] :1955 Requested By: CYNTHIA NICHOLSON Order Number: [id number] MD: Chace Murdock Measurements IntervalsAxis Rate: 50 P: HI:QRS : 3 QRSD: 84 T:-22 QT: 464 QTc:424 Interpretive Statements Sinus bradycardia NONSPECIFIC T ABNORMALITIES, INFERIOR LEADS Electronically Signed On 09-11-2018 8:31:40 TOOL CRIB ATTENDANT by Chace Murdock Procedure Note Interface, External Ris In - 09/11/2018 8:31 AM TOOL CRIB ATTENDANT [facility] Test Date: 2018-09-09 Pat Name: EPIFANIO AYALA Department: [facility] Room: Gender: Female Oil Tester: [id number] : 1955 Requested By: CYNTHIA NICHOLSON Order Number: [id number] Reading MD: Chace Murdock Measurements Intervals [place] Rate: 50 P: HI: QRS: 3 QRSD: 84 T: -22 QT: 464 QTc: 424 Interpretive Statements Sinus bradycardia NONSPECIFIC T ABNORMALITIES, INFERIOR LEADS Electronically Signed On 09-11-2018 8:31:40 TOOL CRIB ATTENDANT by Chace Murdock Performing Organization Address City/State/Zipcode Phone Number [facility] * Lab Outside Record (08/25/2018) Only the most recent of 2 results within the time period is included. Narrative Performed At * Lipid Panel (08/09/2018) Only the most recent of 2 results within the time period is included. Triglycerides 91 40 - 150 mg/dL HDL Cholesterol 77 (A) 50 - 70 mg/dL LDL Cholesterol 86 100 mg/dL Cholesterol/HDL Ratio 2.4 5.0 Non-HDL Cholesterol 105 130 Cholesterol 182 200 Specimen Blood Narrative Performed At * Glucose (08/09/2018) Glucose 93 mg/dL Specimen Blood * Aspartate Aminotransferase (08/09/2018) Aspartate 16 13 - 35 U/L Aminotransferase Specimen Blood * Alanine Aminotransferase (08/09/2018) Alanine Aminotransferase 16 7 - 35 U/L Specimen Blood from Last 3 Months
--- OUTSIDE RECORDS SUMMARY | 2018-10-31 09:47 | XMS REPORT | Encounter Summary ---
Author Author [facility] Organization [facility] Address Unknown Phone Unavailable Care Team Providers Care Web Retailer Name Role Phone Hermann Sorenson MD PCP Reason for Visit * Reason Comments Atrial fibrillation Encounter Details Date Type Department Care Team Description 10/29[facility]2018 [facility] [address] [facility] [address] [place] [address] Social History Tobacco Use Types Packs/Day Years Used Date Never Smoker Smokeless Tobacco: Never Used Alcohol Use Drinks/Week oz/Week Comments No Sex Assigned at Date Recorded Not on file as of this encounter Miscellaneous Notes * Telephone Encounter - Louise Pitts RN - 10/29/2018 3:39 PM PUNCHBOARD STUFFER Pt was seen in ER in [place] and was in afib with [facility]. They were mixing up cardizem gtt to give to pt and she spontaneously converted, but did a have "slight troponin bump". ER nurse practitioner is going to have her stay for observation or transfer her to [facility] if pt prefers. Routed to [facility] for review. * Addendum Note - Kacey Trimble RN - 10/29/2018 9:55 AM PUNCHBOARD STUFFER Addended by: KACEY TRIMBLE on: 10/29/2018 09:55 AM Modules accepted: Orders * Telephone Encounter - Kacey Trimble RN - 10/29/2018 9:54 AM PUNCHBOARD STUFFER Reviewed recs with patient. She v/u. Pt lives in [place], [place] and is going to contact her PCP to have EKG done today. Gave her fax number for office to fax EKG as soon as completed. Offered her same day appt with [facility] this afternoon and she declined. Again reviewed ER precautions. She v/u. Pt returned call and would like EKG order faxed to [facility]. Done per her request. Routed to chart methods analyst data processing to watch for EKG fax to be received and route to [facility]. * Telephone Encounter - Marcos Olson MD - 10/29/2018 9:29 AM PUNCHBOARD STUFFER Also, let's increase the flecainide dose to 75 mg po bid. It would be nice if she can come in for an EKG to see what her rhythm is. * Telephone Encounter - Yeny Szymanski RN - 10/29/2018 8:58 AM PUNCHBOARD STUFFER Pt called to report that she went into a-fib at 0100 today and she feels like she is still in it. She took 100 mg of flecainide this AM but is usually on 50 mg BID. She is also on Xarelto 20 mg daily. Per her report her HR is 75. I have set up an appt with next available MD and told her that if she has symptoms of lightheadedness, dizziness or SOA she should go to the ED. Routed to [facility] for recs. in this encounter Plan of Treatment Date Type Specialty Care Team Description 11/02/2018 Office Visit Cardiology Mariia Gillis MD [address] [facility] [address] [place] [address] [phone] 11/29/2018 [place] [address] [facility] [address] [place] [address] [phone] as of this encounter Visit Diagnoses Not on filein this encounter
--- OUTSIDE RECORDS SUMMARY | 2018-10-31 09:47 | XMS REPORT | Encounter Summary ---
Author Author [facility] Organization [facility] Address Unknown Phone Unavailable Care Team Providers Care Visual Aid Expert Name Role Phone Hermann Sorenson MD PCP Encounter Details Date Type Department Care Team Description 09/07/2018 [facility] [address] [place], [place] [address] Social History Tobacco Use Types Packs/Day Years Used Date Never Smoker Smokeless Tobacco: Never Used Alcohol Use Drinks/Week oz/Week Comments No Sex Assigned at Date Recorded Not on file as of this encounter Plan of Treatment Date Type Specialty Care Team Description 11/02/2018 Office Visit Cardiology Mariia Gillis MD [address] [facility] [address] [place] [address] [phone] 11/29/2018 [place] [address] [place], [place] [address] as of this encounter 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
--- OUTSIDE RECORDS SUMMARY | 2018-10-31 09:47 | XMS REPORT | Encounter Summary ---
Author Author [facility] Organization [facility] Address Unknown Phone Unavailable Care Team Providers Care Instructor Robotics Name Role Phone Hermann Sorenson MD PCP Encounter Details Date Type Department Care Team Description 10/28/2018 Documentation [facility] Edilma Parada, RN Specialists [address] [place], [place] [address] Social History Tobacco Use Types Packs/Day Years Used Date Never Smoker Smokeless Tobacco: Never Used Alcohol Use Drinks/Week oz/Week Comments No Sex Assigned at Date Recorded Not on file as of this encounter Progress Notes * Edilma Parada RN - 10/28/2018 9:03 AM AIRLINE FLIGHT ATTENDANT Per incoming portal message from Pt: Please fax the results of my gastric emptying test, endoscopy and colonoscopy from Spring [address] Powell [phone] in [place], [place]. Please identify as for JOSE ENRIQUE De Anda 1955. Thanks. EGD/Colon, path results and GES result letter sent to Dr. Powell in [place], [place] in this encounter Plan of Treatment Date Type Specialty Care Team Description 11/02/2018 Office Visit Cardiology Mraiia Gillis MD [address] [facility] [address] [place] [address] [phone] 11/29/2018 [place] [address] [place], [place] [address] as of this encounter Visit Diagnoses Not on filein this encounter
--- OUTSIDE RECORDS SUMMARY | 2018-10-31 09:47 | XMS REPORT | Encounter Summary ---
Author Author [facility] Organization [facility] Address Unknown Phone Unavailable Care Team Providers Care Mechanical Reliability Engineer Name Role Phone Hermann Sorenson MD PCP Reason for Referral * Diagnostic Imaging (Routine) Status Reason Specialty Diagnoses / Referred By Referred To Procedures Contact Contact Authorized Diagnoses Giocondo, Paroxysmal Marcos Haywood [place] atrial [address] (HCC) [address] [facility] [address] Electrocardiogra Phone: m (ECG) [phone] Encounter Details Date Type Department Care Team Description 10/29/2018 Orders Only [facility] Veronica Grady, [place] Paroxysmal atrial Cardiovascular fibrillation (HCC) Consultants (Primary Dx) [address] [place] [address] Social History Tobacco Use Types Packs/Day Years Used Date Never Smoker Smokeless Tobacco: Never Used Alcohol Use Drinks/Week oz/Week Comments No Sex Assigned at Date Recorded Not on file as of this encounter Plan of Treatment Date Type Specialty Care Team Description 11/02/2018 Office Visit Cardiology Mariia Gillis MD [address] [place] [address] [phone] 11/29/2018 [place] [address] [place], [place] [address] Name Priority Associated Diagnoses Order Schedule Electrocardiogram (ECG) Routine Paroxysmal atrial Expected: 10/29/2018, fibrillation (HCC) Expires: 10/29/2019 as of this encounter Visit Diagnoses Diagnosis Paroxysmal atrial fibrillation (HCC) - Primary Atrial fibrillation
--- OUTSIDE RECORDS SUMMARY | 2018-10-31 09:47 | XMS REPORT | Encounter Summary ---
Author Author [facility] Organization [facility] Address Unknown Phone Unavailable Care Team Providers Care Wic Site Coordinator Name Role Phone Hermann Sorenson MD PCP Reason for Referral * Diagnostic Imaging (Routine) Status Reason Specialty Diagnoses / Referred By Referred To Procedures Contact Contact Authorized Diagnoses Umesh Nicholson Paroxysmal JKARTHIKEYAN atrial [address] fibrillation 1999 ([facility]) [place], [place] Essential [address] hypertension Phone: P [phone] rocedures Fax: Electrocardiogra [phone] m (ECG) Reason for Visit * Reason Comments Atrial fibrillation Hypertension Encounter Details Date Type Department Care Team Description 09/09/2018 Office Visit [place] Umesh Nicholson APRN Paroxysmal atrial Cardiovascular [address] fibrillation ([facility]) Consultants 1999 (Primary Dx); [address] [place] [address] Essential hypertension; [address] pen[place] [address] anticoagulant; [phone] penitentiary current use of antiarrhythmic drug Social History Tobacco Use Types Packs/Day Years Used Date Never Smoker Smokeless Tobacco: Never Used Alcohol Use Drinks/Week oz/Week Comments No Sex Assigned at Date Recorded Not on file as of this encounter Last Filed Vital Signs Vital Sign Reading Time Taken Blood Pressure 125/84 09/09/2018 9:21 AM ARTIFICIAL STONE APPLICATOR Pulse 70 09/09/2018 9:21 AM ARTIFICIAL STONE APPLICATOR Temperature - - Respiratory Rate - - Oxygen Saturation - - Inhaled Oxygen - - Concentration Weight 79.8 kg (176 lb) 09/09/2018 9:21 AM ARTIFICIAL STONE APPLICATOR Height 170.2 cm (5' 7") 09/09/2018 9:21 AM ARTIFICIAL STONE APPLICATOR Body Mass Index 27.57 09/09/2018 9:21 AM ARTIFICIAL STONE APPLICATOR in this encounter Instructions * Patient Instructions - mUesh Nicholson APRN - 09/09/2018 9:30 AM ARTIFICIAL STONE APPLICATOR Continue current medications Follow up with Dr. Olson in 6 months or sooner in this encounter Progress Notes * Umesh Nicholson APRN - 09/09/2018 9:30 AM ARTIFICIAL STONE APPLICATOR Formatting of this note may be different from the original. [facility] Appointment Date: 09/09/2018 Hermann Sorenson MD [address] [facility] [id number] RE: Katrin Ayala : 1955 Visit provider: Umesh Nicholson APRN Dear Hermann Sorenson MD, I had the pleasure of seeing Katrin Ayala in the office today. She is a(n) 63 y.o. female and presents with the following chief complaint(s): Atrial fibrillation and Hypertension HPI: Ms. Ayala presents to the clinic today for a 6-month followup. She was last seen by Dr. Olson in February. She is a pleasant 63-year-old female with a history of symptomatic paroxysmal atrial fibrillation status post left atrial ablation with pulmonary vein cryoballoon ablation in October 2017. Her symptoms improved following her procedure. She proceeded with a 2-week Zio patch monitor in February, which revealed baseline normal sinus rhythm with several brief episodes of supraventricular tachycardia, which were felt to be likely atrial tachycardia and atrial flutter. She was continued on flecainide as well as Eliquis for thromboprophylaxis. She has a history of intolerance to beta blockers due to fatigue and poor stamina. Ms. Ayala tells me she has had ongoing intermittent gastrointestinal issues for the last several months. So far her GI evaluation has been unrevealing. This has been quite frustrating for her. She tells me, she has another test scheduled for next week, which sounds like a GI capsule study. Through all of this though, her cardiac symptoms have been very stable. She tells me she has an occasional blip of irregular heart rate, but nothing sustained. She changed from Eliquis to Xarelto due to cost reasons. She is tolerating this well and denies any visible signs of bleeding. She has also brought recent laboratory test results, which all appear stable. Her EKG today appears to be unchanged and she is maintaining normal sinus rhythm. She has questions regarding the duration of her antiarrhythmic and anticoagulation therapy. 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 CHOLECYSTECTOMY 10/2011 COLONOSCOPY 2004 COLONOSCOPY, WITH MULTIPLE POLYPECTOMIES USING SNARE TECHNIQUE N/A 09/08/2017 COLONOSCOPY, WITH MULTIPLE POLYPECTOMIES USING SNARE TECHNIQUE; Surgeon: Hector Diego MD; Location: [facility]; Service: Gastroenterology; Laterality: N/A; ELECTROPHYSIOLOGY STUDY WITH POSSIBLE LEFT ATRIAL ABLATION WITH REPEAT ABLATION IF INDICATED N/A 11/25/2017 Successful EPS and pulmonary vein cryoablation for treatment of atrial fibrillation. ELECTROPHYSIOLOGY STUDY WITH POSSIBLE LEFT ATRIAL ABLATION with carto and cryo; Surgeon: Marcos Olson MD; Location: [facility]; Service: Electrophysiology lab - Invasive; Laterality: N/A; ESOPHAGO-GASTRO DUODENOSCOPY WITH BIOPSY POLYP OR TISSUE MULTIPLE WITH FORCEP N/A 09/08/2017 ESOPHAGOGASTRODUODENOSCOPY, WITH MULTIPLE TISSUE BIOPSIES OR POLYPECTOMY USING FORCEPS; Surgeon: Hector Diego MD; Location: [facility]; Service: Gastroenterology ; Laterality: N/A; HEMORRHOIDECTOMY ORIF, FRACTURE, FIBULA Left 12/2007 SKIN CANCER EXCISION THYROIDECTOMY, PARTIAL 11/2014 TONSILLECTOMY childhood Final Medications: Current Outpatient Prescriptions Medication Sig Dispense Refill calcium carb,[id number] D3 (CALCIUM MAGNESIUM + D) 500-250-200 mg-mg- unit Tab Take 1 tablet by mouth daily. cholecalciferol, vitamin D3, (VITAMIN D3) 2,000 unit cap capsule Take 1 capsule by mouth daily. flecainide (TAMBOCOR) 100 MG tablet Take 0.5 tablets (50 mg total) by mouth 2 (two) times a day. 180 tablet 0 levothyroxine (SYNTHROID, LEVOTHROID) 50 MCG tablet Take 50 mcg by mouth daily. 12 pantoprazole (PROTONIX) 40 MG tablet Take 40 mg by mouth daily. prochlorperazine (COMPAZINE) 10 MG tablet as needed. XARELTO 20 mg tablet Take 20 mg by mouth daily. No current facility-administered medications for this visit. No Known Allergies Family History Problem Relation Age of Onset Inflammatory bowel disease Mother Inflammatory bowel disease Sister Ulcerative colitis Sister Ulcerative colitis Brother Social History: Social History Substance Use Topics Smoking status: Never Smoker Smokeless tobacco: Never Used Alcohol use No Review of Systems Constitution: Positive for malaise/fatigue. Negative for fever and night sweats. HENT: Negative for nosebleeds. Cardiovascular: Positive for irregular heartbeat. Negative for chest pain, claudication, cyanosis, dyspnea on exertion, leg swelling, near-syncope, orthopnea, palpitations, paroxysmal nocturnal dyspnea and syncope. Respiratory: Positive for cough, sleep disturbances due to breathing and snoring. Negative for hemoptysis, shortness of breath and wheezing. Endocrine: Negative for cold intolerance and polydipsia. Hematologic/Lymphatic: Does not bruise/bleed easily. Skin: Negative for rash. Musculoskeletal: Positive for joint pain. Negative for myalgias. Gastrointestinal: Negative for dysphagia, hematochezia, nausea and vomiting. Genitourinary: Negative for hematuria. Neurological: Positive for loss of balance. Negative for brief paralysis, disturbances in coordination, excessive daytime sleepiness, dizziness, focal weakness, light-headedness, numbness and paresthesias. Psychiatric/Behavioral: Negative for depression. All other systems reviewed and are negative. Vital Signs 09/09/18 0900 09/09/18 0921 BP: 132/85 125/84 Pulse: 73 70 Weight: 79.8 kg (176 lb) 79.8 kg (176 lb) Height: 1.702 m (5' 7") 1.702 m (5' 7") BMI: Body mass index is 27.57 kg/m. Physical Exam Constitutional: She is oriented to person, place, and time. She appears well- developed and well-nourished. Eyes: Conjunctivae are normal. Neck: No JVD present. Carotid bruit is not present. Cardiovascular: Normal rate, regular rhythm, S1 normal, S2 normal, normal heart sounds, intact distal pulses and normal pulses. Pulmonary/Chest: Effort normal and breath sounds normal. Abdominal: Soft. Bowel sounds are normal. She exhibits no abdominal bruit. There is no tenderness. Musculoskeletal: Normal range of motion. Neurological: She is alert and oriented to person, place, and time. Skin: Skin is warm, dry and intact. Psychiatric: She has a normal mood and affect. Her speech is normal and behavior is normal. Judgment and thought content normal. Cognition and memory are normal. Cholesterol (no units) Date Value 08/09/2018 182 HDL Cholesterol (mg/dL) Date Value 08/09/2018 77 (A) Triglycerides (mg/dL) Date Value 08/09/2018 91 LDL Cholesterol Date/Time Value Ref Range Status 08/09/2018 86 mg/dL Final EKG: Normal Sinus Rhythm at 50 bpm Encounter Diagnoses Name Primary? 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 Paroxysmal atrial fibrillation, status post left atrial ablation with pulmonary vein cryoballoon ablation. Her symptoms appear to be well controlled. She continues on both flecainide and Xarelto, as her outpatient event monitor did reveal brief episodes of atrial arrhythmias, which were felt to be likely atrial tachycardia versus atrial flutter. I have asked that she continue on her medications for now and follow up with Dr. Olson in approximately 6 months for reevaluation. 2. Long-term anticoagulation. She does have a [id number] score of 3 for her age, gender and hypertension. She transitioned from Eliquis to Xarelto 20 mg daily, which she is tolerating well. 3. Hypertension. Her blood pressure is well controlled today and she continues off of all antihypertensives. Treatment goals, progress and next steps, as above, were discussed and mutually agreed upon with the patient/family. Thank you for allowing me to participate in Katrin Ayala's care. If I can be of any further assistance, please do not hesitate to contact me. Sincerely, Umesh Nicholson APRN /abhishek in this encounter Plan of Treatment Date Type Specialty Care Team Description 11/02/2018 Office Visit Cardiology Mariia Gillis MD [address] [facility] [address] [place] [address] [phone] 11/29/2018 Office [place] [address] [facility] [address] [place], [place] [address] as of this encounter Procedures Procedure Name Priority Date/Time Associated Diagnosis Comments ECG Routine 09/09/2018 Paroxysmal atrial Results for this 9:21 AM ARTIFICIAL STONE APPLICATOR fibrillation (HCC) procedure are in the Essential hypertension results section. LIPID PANEL Routine 08/09/2018 Results for this 12:00 AM ARTIFICIAL STONE APPLICATOR procedure are in the results section. GLUCOSE Routine 08/09/2018 Results for this 12:00 AM ARTIFICIAL STONE APPLICATOR procedure are in the results section. ASPARTATE Routine 08/09/2018 Results for this AMINOTRANSFERASE 12:00 AM ARTIFICIAL STONE APPLICATOR procedure are in the results section. ALANINE AMINOTRANSFERASE Routine 08/09/2018 Results for this 12:00 AM ARTIFICIAL STONE APPLICATOR procedure are in the results section. in this encounter Results * Electrocardiogram (ECG) (09/09/2018 9:21 AM) QRSd 84 [facility] QT 464 [facility]ER QTC 424 [facility]ER ECGHR 50 [facility]ER Narrative Performed At [facility] Test Date:2018-09-09 Pat Name: KATRIN AYALA Department: [facility] Room: Gender: Female Mid Level Net Developer: [id number] :1955 Requested By: UMESH NICHOLSON Order Number: [id number] : Chace Murdock Measurements IntervalsAxis Rate: 50 P: AL:QRS : 3 QRSD: 84 T:-22 QT: 464 QTc:424 Interpretive Statements Sinus bradycardia NONSPECIFIC T ABNORMALITIES, INFERIOR LEADS Electronically Signed On 09-11-2018 8:31:40 ARTIFICIAL STONE APPLICATOR by Chace Murdock Procedure Note Interface, External Ris In - 09/11/2018 8:31 AM ARTIFICIAL STONE APPLICATOR [facility] Test Date: 2018-09-09 Pat Name: KATRIN AYALA Department: [facility] Room: Gender: Female Mid Level Net Developer: [id number] : 1955 Requested By: UMESH NICHOLSON Order Number: [id number] Reading MD: Chace Murdock Measurements Intervals [place] Rate: 50 P: AL: QRS: 3 QRSD: 84 T: -22 QT: 464 QTc: 424 Interpretive Statements Sinus bradycardia NONSPECIFIC T ABNORMALITIES, INFERIOR LEADS Electronically Signed On 09-11-2018 8:31:40 ARTIFICIAL STONE APPLICATOR by Chace Murdock Performing Organization Address City/State/Zipcode Phone Number [facility] * Alanine Aminotransferase (08/09/2018) Alanine Aminotransferase 16 7 - 35 U/L Specimen Blood * Aspartate Aminotransferase (08/09/2018) Aspartate 16 13 - 35 U/L Aminotransferase Specimen Blood * Glucose (08/09/2018) Glucose 93 mg/dL Specimen Blood * Lipid Panel (08/09/2018) Triglycerides 91 40 - 160 mg/dL HDL Cholesterol 77 (A) 35 - 70 mg/dL LDL Cholesterol 86 mg/dL Cholesterol/HDL Ratio 2.4 LDL INTERPRETATION Non-HDL Cholesterol 105 Cholesterol 182 Specimen Blood in this encounter Visit Diagnoses Diagnosis Paroxysmal atrial fibrillation (HCC) - Primary Atrial fibrillation Essential hypertension Unspecified essential hypertension penitentiary current use of anticoagulant 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
--- OUTSIDE RECORDS SUMMARY | 2018-10-31 09:48 | XMS REPORT | Continuity of Care Document ---
Author Author [facility] Organization [facility] Address Unknown Phone Unavailable Allergies Active Description Code Type Severity Reaction Onset Reported/Identified Relationship to Patient Clinical Status Yes No Known Drug Allergies [id number] Drug Allergy Unknown N/A 08/21/2008 Medications There is no data. Problems Date Dx Coded Attending Type Code Diagnosis Diagnosed By 09/07/2014 THERON AMBROCIO, COLLEEN Brewer Ot 246.9 09/13/2014 Ot V76.12 09/13/2014 Ot V76.12 09/13/2014 Ot 575.8 09/13/2014 Ot 785.1 09/13/2014 Ot V76.12 09/13/2014 THERON AMBROCIO, COLLEEN Brewer Ot V76.12 09/13/2014 THERON AMBROCIO, COLLEEN Brewer Ot 246.9 09/14/2014 NENA AMBROCIO, TADEO M Ot 241.0 09/15/2014 NENA AMBROCIO, TADEO M Ot 241.0 09/15/2014 NENA AMBROCIO, TADEO M Ot V72.63 09/15/2014 NENA AMBROCIO, TADEO M Ot V72.81 09/15/2014 NENA AMBROCIO, TADEO M Ot V74.8 09/20/2014 NENA AMBROCIO, TADEO M Ot 241.0 09/20/2014 NENA AMBROCIO, TADEO M Ot 241.0 09/29/2014 NENA AMBROCIO, TADEO M Ot 241.0 10/09/2014 NENA AMBROCIO, TADEO M Ot 241.0 10/09/2014 NENA AMBROCIO, TADEO M Ot V72.63 10/09/2014 NENA AMBROCIO, TADEO M Ot V72.81 10/09/2014 NENA AMBROCIO, TADEO M Ot V74.8 12/06/2014 Ot V76.12 12/06/2014 Ot V76.12 12/06/2014 Ot 575.8 12/06/2014 Ot 785.1 12/06/2014 Ot V76.12 12/06/2014 THERON AMBROCIO, COLLEEN Brewer Ot V76.12 12/06/2014 THERON AMBROCIO, COLLEEN Brewer Ot 246.9 12/06/2014 NENA AMBROCIO, TADEO M Ot 241.0 12/06/2014 NENA AMBROCIO, TADEO M Ot 241.0 12/06/2014 NENA AMBROCIO, TADEO M Ot V72.63 12/06/2014 NENA AMBROCIO, TADEO M Ot V72.81 12/06/2014 NENA AMBROCIO, TADEO M Ot V74.8 12/06/2014 MATT AMBROCIO, ELIZABETH P Ot 240.9 12/06/2014 MATT AMBROCIO, ELIZABETH P Ot V72.63 12/06/2014 MATT AMBROCIO, ELIZABETH P Ot V72.83 12/06/2014 MATT AMBROCIO, ELIZABETH P Ot V74.8 12/08/2014 MATT AMBROCIO, ELIZABETH P Ot 241.1 NONTOX MULTINODUL GOITER 12/15/2014 MATT AMBROCIO, ELIZABETH P Ot 240.9 12/15/2014 MATT AMBROCIO, ELIZABETH P Ot V72.63 12/15/2014 MATT AMBROCIO, ELIZABETH P Ot V72.83 12/15/2014 MATT AMBROCIO, ELIZABETH P Ot V74.8 12/25/2014 NENA AMBROCIO, TADEO M Ot 241.0 12/25/2014 SAMANTHA AMBROCIO, NISHI Haywood Ot 240.9 12/25/2014 SAMANTHA AMBROCIO, NISHI Haywood Ot 427.31 12/25/2014 SAMANTHA AMBROCIO, BASVIVIAN J Ot 780.79 12/25/2014 SAMANTHA AMBROCIO, NISHI J Ot 785.1 09/12/2015 THERON AMBROCIO, COLLEEN Brewer Ot Z12.31 11/19/2015 NENA AMBROCIO, TADEO M Ot 241.0 11/19/2015 NENA AMBROCIO, TADEO M Ot 241.0 11/19/2015 NENA AMBROCIO, TADEO M Ot V72.63 11/19/2015 NENA AMBROCIO, TADEO M Ot V72.81 11/19/2015 NENA AMBROCIO, TADEO M Ot V74.8 06/09/2017 Ot V76.12 OTH SCREEN MAMMO-MALIGN NEOPLASM OF JOAN 06/09/2017 THERON AMBROCIO, COLLEEN Brewer Ot V76.12 OTH SCREEN MAMMO-MALIGN NEOPLASM OF JOAN 06/09/2017 THERON AMBROCIO, COLLEEN Brewer Ot 246.9 DISORDER OF THYROID NOS 06/09/2017 NENA AMBROCIO, TADEO M Ot 241.0 NONTOX UNINODULAR GOITER 06/09/2017 NENA AMBROCIO, TADEO Chatterjee Ot 241.0 NONTOX UNINODULAR GOITER 06/09/2017 NENA AMBROCIO, TDAEO M Ot V72.63 PRE-PROCEDURAL LABORATORY EXAMINATION 06/09/2017 NENA AMBROCIO, TADEO Chatterjee Ot V72.81 STLI-UQL-NLNOJLEEG CARDIOVASCULAR 06/09/2017 NENA AMBROCIO, TADEO Chatterjee Ot V74.8 SCREEN-BACTERIAL DIS NEC 06/09/2017 MATT AMBROCIO, ELIZABETH Scott Ot 240.9 GOITER NOS 06/09/2017 MATT AMBROCIO, ELIZABETH Scott Ot V72.63 PRE-PROCEDURAL LABORATORY EXAMINATION 06/09/2017 MATT AMBROCIO, ELIZABETH Scott Ot V72.83 EXAM PRE-OPERATIVE NEC 06/09/2017 MATT AMBROCIO, ELIZABETH Scott Ot V74.8 SCREEN-BACTERIAL DIS NEC 06/09/2017 SAMANTHA AMBROCIO, NISHI Haywood Ot 240.9 GOITER NOS 06/09/2017 SAMANTHA AMBROCIO, NISHI Haywood Ot 427.31 ATRIAL FIBRILLATION 06/09/2017 SAMANTHA AMBROCIO, NISHI Haywood Ot 780.79 OTH MALAISE FATIGUE 06/09/2017 SAMANTHA AMBROCIO, NISHI Haywood Ot 785.1 PALPITATIONS 06/09/2017 THERON AMBROCIO, COLLEEN Brewer Ot Z12.31 ENCNTR SCREEN MAMMOGRAM FOR MALIGNANT NE 06/10/2017 THERON AMBROCIO, COLLEEN Brewer Ot I48.91 UNSPECIFIED ATRIAL FIBRILLATION 06/16/2017 COLLEEN CRUMP MD Ot E03.9 HYPOTHYROIDISM, UNSPECIFIED 06/16/2017 COLELEN CRUMP MD Ot I10 ESSENTIAL (PRIMARY) HYPERTENSION 06/16/2017 COLLEEN CRUMP MD Ot I48.0 PAROXYSMAL ATRIAL FIBRILLATION 06/16/2017 COLLEEN CRUMP MD Ot R11.0 NAUSEA 06/16/2017 COLLEEN CRUMP MD Ot R19.7 DIARRHEA, UNSPECIFIED 06/16/2017 COLLEEN CRUMP MD Ot R55 SYNCOPE AND COLLAPSE 06/16/2017 COLLEEN CRUMP MD Ot E03.9 HYPOTHYROIDISM, UNSPECIFIED 06/16/2017 COLLEEN CRUMP MD Ot I10 ESSENTIAL (PRIMARY) HYPERTENSION 06/16/2017 COLLEEN CRUMP MD Ot I48.0 PAROXYSMAL ATRIAL FIBRILLATION 06/16/2017 COLLEEN CRUMP MD Ot R11.0 NAUSEA 06/16/2017 COLLEEN CRUMP MD Ot R19.7 DIARRHEA, UNSPECIFIED 06/16/2017 COLLEEN CRUMP MD Ot R55 SYNCOPE AND COLLAPSE 06/16/2017 THERON AMBROCIO, COLLEEN Brewer Ot E03.9 HYPOTHYROIDISM, UNSPECIFIED 06/16/2017 COLLEEN CRUMP MD Ot I10 ESSENTIAL (PRIMARY) HYPERTENSION 06/16/2017 COLLEEN CRUMP MD Ot I48.0 PAROXYSMAL ATRIAL FIBRILLATION 06/16/2017 COLLEEN CRUMP MD Ot R11.0 NAUSEA 06/16/2017 COLLEEN CRUMP MD Ot R19.7 DIARRHEA, UNSPECIFIED 06/16/2017 COLLEEN CRUMP MD Ot R55 SYNCOPE AND COLLAPSE 06/17/2017 COLLEEN CRUMP MD Ot I48.91 UNSPECIFIED ATRIAL FIBRILLATION 07/06/2017 HRISTOVA PA, ANELIYA H Ot N83.202 UNSPECIFIED OVARIAN CYST, LEFT SIDE 07/06/2017 HRISTOVA PA, ANELIYA H Ot Z90.49 ACQUIRED ABSENCE OF OTHER SPECIFIED PART 07/08/2017 HRISTOVA PA, ANELIYA H Ot N83.202 UNSPECIFIED OVARIAN CYST, LEFT SIDE 07/08/2017 HRISTOVA PA, ANELIYA H Ot Z90.49 ACQUIRED ABSENCE OF OTHER SPECIFIED PART 07/27/2017 HRISTOVA PA, ANELIYA H Ot N83.202 UNSPECIFIED OVARIAN CYST, LEFT SIDE 07/27/2017 HRISTOVA PA, ANELIYA H Ot Z90.49 ACQUIRED ABSENCE OF OTHER SPECIFIED PART 09/04/2017 GENARO DO ELIZABETH S Ot N83.201 UNSPECIFIED OVARIAN CYST, RIGHT SIDE 10/03/2017 BENJAMÍN FUNK RUG CUTTER HELPER Ot G47.33 OBSTRUCTIVE SLEEP APNEA (ADULT) (PEDIATR 10/03/2017 BENJAMÍN FUNK RUG CUTTER HELPER Ot I10 ESSENTIAL (PRIMARY) HYPERTENSION 10/05/2017 BENJAMÍN FUNK E RUG CUTTER HELPER Ot G47.33 OBSTRUCTIVE SLEEP APNEA (ADULT) (PEDIATR 10/05/2017 BENJAMÍN FUNK RUG CUTTER HELPER Ot I10 ESSENTIAL (PRIMARY) HYPERTENSION 01/13/2018 COLLEEN CRUMP MD Ot Z12.31 ENCNTR SCREEN MAMMOGRAM FOR MALIGNANT NE 01/13/2018 COLLEEN CRUMP MD Ot Z12.31 ENCNTR SCREEN MAMMOGRAM FOR MALIGNANT NE 01/27/2018 COLLEEN CRUMP MD Ot Z12.31 ENCNTR SCREEN MAMMOGRAM FOR MALIGNANT NE 09/16/2018 COLLEEN CRUMP MD Ot R10.11 RIGHT UPPER QUADRANT PAIN 09/16/2018 THERON AMBROCIO, COLLEEN Brewer Ot R11.2 NAUSEA WITH VOMITING, UNSPECIFIED 09/16/2018 THERON AMBROCIO, COLLEEN Brewer Ot R19.7 DIARRHEA, UNSPECIFIED 09/16/2018 THERON AMBROCIO, COLLEEN Brewer Ot R68.81 EARLY SATIETY 09/29/2018 THERON AMBROCIO, COLLEEN Brewer Ot R10.11 RIGHT UPPER QUADRANT PAIN 09/29/2018 THERON AMBROCIO, COLLEEN Brewer Ot R11.2 NAUSEA WITH VOMITING, UNSPECIFIED 09/29/2018 THERON AMBROCIO, COLLEEN Brewer Ot R19.7 DIARRHEA, UNSPECIFIED 09/29/2018 THERON AMBROCIO, COLLEEN Brewer Ot R68.81 EARLY SATIETY Procedures Code Description Performed By Performed On [id number] ISLAM OF CARDIAC RHYTHM, SINGLE 06/16/2017 Results Test Result Range Complete blood count (CBC) with automated white blood cell (WBC) differential - 06/14/17 08:45 Blood leukocytes automated count (number/volume) 10.6 10*3/uL 4.3-11.0 Blood erythrocytes automated count (number/volume) 5.64 10*6/uL 4.35-5.85 Venous blood hemoglobin measurement (mass/volume) 15.7 g/dL 11.5-16.0 Blood hematocrit (volume fraction) 48 % 35-52 Automated erythrocyte mean corpuscular volume 84 [foz_us] 80-99 Automated erythrocyte mean corpuscular hemoglobin (mass per erythrocyte) 28 pg 25-34 Automated erythrocyte mean corpuscular hemoglobin concentration measurement ( mass/volume) 33 g/dL 32-36 Automated erythrocyte distribution width ratio 13.3 % 10.0-14.5 Automated blood platelet count (count/volume) 214 10*3/uL 130-400 Automated blood platelet mean volume measurement 10.7 [foz_us] 7.4-10.4 Automated blood neutrophils/100 leukocytes 80 % 42-75 Automated blood lymphocytes/100 leukocytes 15 % 12-44 Blood monocytes/100 leukocytes 5 % 0-12 Automated blood eosinophils/100 leukocytes 0 % 0-10 Automated blood basophils/100 leukocytes 0 % 0-10 Blood neutrophils automated count (number/volume) 8.4 10*3 1.8-7.8 Blood lymphocytes automated count (number/volume) 1.5 10*3 1.0-4.0 Blood monocytes automated count (number/volume) 0.5 10*3 0.0-1.0 Automated eosinophil count 0.0 10*3/uL 0.0-0.3 Automated blood basophil count (count/volume) 0.0 10*3/uL 0.0-0.1 PT panel in platelet poor plasma by coagulation assay - 06/14/17 08:45 Prothrombin time (PT) in platelet poor plasma by coagulation assay 13.9 s 12.2-14.7 INR in platelet poor plasma or blood by coagulation assay 1.1 0.8-1.4 Activated partial thromboplastin time (aPTT) in platelet poor plasma bycoagulation assay - 06/14/17 08:45 Activated partial thromboplastin time (aPTT) in platelet poor plasma bycoagulation assay 30 s 24-35 Comprehensive metabolic panel - 06/14/17 08:45 Serum or plasma sodium measurement (moles/volume) 143 mmol/L 135-145 Serum or plasma potassium measurement (moles/volume) 3.8 mmol/L 3.6-5.0 Serum or plasma chloride measurement (moles/volume) 107 mmol/L 98-107 Carbon dioxide 24 mmol/L 21-32 Serum or plasma anion gap determination (moles/volume) 12 mmol/L 5-14 Serum or plasma urea nitrogen measurement (mass/volume) 14 mg/dL 7-18 Serum or plasma creatinine measurement (mass/volume) 1.13 mg/dL 0.60-1.30 Serum or plasma urea nitrogen/creatinine mass ratio 12 NRG Serum or plasma creatinine measurement with calculation of estimated glomerular filtration rate 48 NRG Serum or plasma glucose measurement (mass/volume) 120 mg/dL 70-105 Serum or plasma calcium measurement (mass/volume) 10.3 mg/dL 8.5-10.1 Serum or plasma total bilirubin measurement (mass/volume) 0.9 mg/dL 0.1-1.0 Serum or plasma alkaline phosphatase measurement (enzymatic activity/volume) 86 U/L 40-136 Serum or plasma aspartate aminotransferase measurement (enzymatic activity/ volume) 22 U/L 5-34 Serum or plasma alanine aminotransferase measurement (enzymatic activity/volume ) 30 U/L 0-55 Serum or plasma protein measurement (mass/volume) 8.0 g/dL 6.4-8.2 Serum or plasma albumin measurement (mass/volume) 4.6 g/dL 3.2-4.5 Magnesium - 06/14/17 08:45 Magnesium 2.1 mg/dL 1.8-2.4 Serum or plasma troponin i.cardiac measurement (mass/volume) - 06/14/17 08:45 Serum or plasma troponin i.cardiac measurement (mass/volume) < ng/ mL <0.30 Myoglobin, serum - 06/14/17 08:45 Myoglobin, serum 31.7 ng/mL 10.0-92.0 THYROID STIMULATING HORMONE - 06/14/17 08:45 THYROID STIMULATING HORMONE 2.17 u[iU]/mL 0.35-4.94 Serum or plasma thyroxine (T4) free measurement (mass/volume) - 06/14/17 08:45 Serum or plasma thyroxine (T4) free measurement (mass/volume) 1.31 ng/dL 0.70-1.48 Complete urinalysis with reflex to culture - 06/14/17 09:54 Urine color determination YELLOW NRG Urine clarity determination CLEAR NRG Urine pH measurement by test strip 7 5-9 Specific gravity of urine by test strip 1.005 1.016- 1.022 Urine protein assay by test strip, semi-quantitative NEGATIVE NEGATIVE Urine glucose detection by automated test strip NEGATIVE NEGATIVE Erythrocytes detection in urine sediment by light microscopy 2+ NEGATIVE Urine ketones detection by automated test strip NEGATIVE NEGATIVE Urine nitrite detection by test strip NEGATIVE NEGATIVE Urine total bilirubin detection by test strip NEGATIVE NEGATIVE Urine urobilinogen measurement by automated test strip (mass/volume) NORMAL NORMAL Urine leukocyte esterase detection by dipstick NEGATIVE NEGATIVE Automated urine sediment erythrocyte count by microscopy (number/high power field) [HPF] NRG Automated urine sediment leukocyte count by microscopy (number/high power field ) RARE NRG Bacteria detection in urine sediment by light microscopy FEW NRG Squamous epithelial cells detection in urine sediment by light microscopy 2-5 NRG Crystals detection in urine sediment by light microscopy NONE NRG Casts detection in urine sediment by light microscopy NONE NRG Mucus detection in urine sediment by light microscopy NEGATIVE NRG Complete urinalysis with reflex to culture NO NRG Lipid 1996 panel - 06/15/17 03:40 Serum or plasma triglyceride measurement (mass/volume) 80 mg/dL <150 Serum or plasma cholesterol measurement (mass/volume) 171 mg/dL < 200 Serum or plasma cholesterol in HDL measurement (mass/volume) 61 mg/ dL 40-60 Cholesterol in LDL [mass/volume] in serum or plasma by direct assay 94 mg/dL 1-129 Serum or plasma cholesterol in VLDL measurement (mass/volume) 16 mg/ dL 5-40 Whole blood basic metabolic panel - 06/15/17 03:40 Serum or plasma sodium measurement (moles/volume) 142 mmol/L 135-145 Serum or plasma potassium measurement (moles/volume) 3.9 mmol/L 3.6-5.0 Serum or plasma chloride measurement (moles/volume) 111 mmol/L 98-107 Carbon dioxide 21 mmol/L 21-32 Serum or plasma anion gap determination (moles/volume) 10 mmol/L 5-14 Serum or plasma urea nitrogen measurement (mass/volume) 12 mg/dL 7-18 Serum or plasma creatinine measurement (mass/volume) 0.84 mg/dL 0.60-1.30 Serum or plasma urea nitrogen/creatinine mass ratio 14 NRG Serum or plasma creatinine measurement with calculation of estimated glomerular filtration rate > NRG Serum or plasma glucose measurement (mass/volume) 109 mg/dL 70-105 Serum or plasma calcium measurement (mass/volume) 8.8 mg/dL 8.5-10.1 Magnesium - 06/15/17 03:40 Magnesium 1.8 mg/dL 1.8-2.4 Complete blood count (CBC) with automated white blood cell (WBC) differential - 06/16/17 04:55 Blood leukocytes automated count (number/volume) 8.0 10*3/uL 4.3-11.0 Blood erythrocytes automated count (number/volume) 5.04 10*6/uL 4.35-5.85 Venous blood hemoglobin measurement (mass/volume) 14.1 g/dL 11.5-16.0 Blood hematocrit (volume fraction) 43 % 35-52 Automated erythrocyte mean corpuscular volume 86 [foz_us] 80-99 Automated erythrocyte mean corpuscular hemoglobin (mass per erythrocyte) 28 pg 25-34 Automated erythrocyte mean corpuscular hemoglobin concentration measurement ( mass/volume) 33 g/dL 32-36 Automated erythrocyte distribution width ratio 13.5 % 10.0-14.5 Automated blood platelet count (count/volume) 189 10*3/uL 130-400 Automated blood platelet mean volume measurement 10.7 [foz_us] 7.4-10.4 Automated blood neutrophils/100 leukocytes 57 % 42-75 Automated blood lymphocytes/100 leukocytes 34 % 12-44 Blood monocytes/100 leukocytes 6 % 0-12 Automated blood eosinophils/100 leukocytes 3 % 0-10 Automated blood basophils/100 leukocytes 1 % 0-10 Blood neutrophils automated count (number/volume) 4.5 10*3 1.8-7.8 Blood lymphocytes automated count (number/volume) 2.8 10*3 1.0-4.0 Blood monocytes automated count (number/volume) 0.5 10*3 0.0-1.0 Automated eosinophil count 0.2 10*3/uL 0.0-0.3 Automated blood basophil count (count/volume) 0.0 10*3/uL 0.0-0.1 Whole blood basic metabolic panel - 06/16/17 04:55 Serum or plasma sodium measurement (moles/volume) 144 mmol/L 135-145 Serum or plasma potassium measurement (moles/volume) 3.8 mmol/L 3.6-5.0 Serum or plasma chloride measurement (moles/volume) 112 mmol/L 98-107 Carbon dioxide 21 mmol/L 21-32 Serum or plasma anion gap determination (moles/volume) 11 mmol/L 5-14 Serum or plasma urea nitrogen measurement (mass/volume) 10 mg/dL 7-18 Serum or plasma creatinine measurement (mass/volume) 0.92 mg/dL 0.60-1.30 Serum or plasma urea nitrogen/creatinine mass ratio 11 NRG Serum or plasma creatinine measurement with calculation of estimated glomerular filtration rate > NRG Serum or plasma glucose measurement (mass/volume) 93 mg/dL 70-105 Serum or plasma calcium measurement (mass/volume) 9.1 mg/dL 8.5-10.1 Serum or plasma phosphate measurement (mass/volume) - 06/16/17 04:55 Serum or plasma phosphate measurement (mass/volume) 3.2 mg/dL 2.3-4.7 Magnesium - 06/16/17 04:55 Magnesium 1.9 mg/dL 1.8-2.4 Complete blood count (CBC) with automated white blood cell (WBC) differential - 10/29/18 14:30 Blood leukocytes automated count (number/volume) 10.1 10*3/uL 4.3-11.0 Blood erythrocytes automated count (number/volume) 5.27 10*6/uL 4.35-5.85 Venous blood hemoglobin measurement (mass/volume) 14.8 g/dL 11.5-16.0 Blood hematocrit (volume fraction) 45 % 35-52 Automated erythrocyte mean corpuscular volume 86 [foz_us] 80-99 Automated erythrocyte mean corpuscular hemoglobin (mass per erythrocyte) 28 pg 25-34 Automated erythrocyte mean corpuscular hemoglobin concentration measurement ( mass/volume) 33 g/dL 32-36 Automated erythrocyte distribution width ratio 13.5 % 10.0-14.5 Automated blood platelet count (count/volume) 186 10*3/uL 130-400 Automated blood platelet mean volume measurement 11.9 [foz_us] 7.4-10.4 Automated blood neutrophils/100 leukocytes 74 % 42-75 Automated blood lymphocytes/100 leukocytes 19 % 12-44 Blood monocytes/100 leukocytes 5 % 0-12 Automated blood eosinophils/100 leukocytes 0 % 0-10 Automated blood basophils/100 leukocytes 0 % 0-10 Blood neutrophils automated count (number/volume) 7.5 10*3 1.8-7.8 Blood lymphocytes automated count (number/volume) 2.0 10*3 1.0-4.0 Blood monocytes automated count (number/volume) 0.5 10*3 0.0-1.0 Automated eosinophil count 0.0 10*3/uL 0.0-0.3 Automated blood basophil count (count/volume) 0.0 10*3/uL 0.0-0.1 Comprehensive metabolic panel - 10/29/18 14:30 Serum or plasma sodium measurement (moles/volume) 142 mmol/L 135-145 Serum or plasma potassium measurement (moles/volume) 3.7 mmol/L 3.6-5.0 Serum or plasma chloride measurement (moles/volume) 106 mmol/L 98-107 Carbon dioxide 25 mmol/L 21-32 Serum or plasma anion gap determination (moles/volume) 11 mmol/L 5-14 Serum or plasma urea nitrogen measurement (mass/volume) 14 mg/dL 7-18 Serum or plasma creatinine measurement (mass/volume) 1.00 mg/dL 0.60-1.30 Serum or plasma urea nitrogen/creatinine mass ratio 14 NRG Serum or plasma creatinine measurement with calculation of estimated glomerular filtration rate 56 NRG Serum or plasma glucose measurement (mass/volume) 99 mg/dL 70-105 Serum or plasma calcium measurement (mass/volume) 10.0 mg/dL 8.5-10.1 Serum or plasma total bilirubin measurement (mass/volume) 0.5 mg/dL 0.1-1.0 Serum or plasma alkaline phosphatase measurement (enzymatic activity/volume) 81 U/L 40-136 Serum or plasma aspartate aminotransferase measurement (enzymatic activity/ volume) 20 U/L 5-34 Serum or plasma alanine aminotransferase measurement (enzymatic activity/volume ) 15 U/L 0-55 Serum or plasma protein measurement (mass/volume) 7.3 g/dL 6.4-8.2 Serum or plasma albumin measurement (mass/volume) 4.4 g/dL 3.2-4.5 CALCIUM CORRECTED 9.7 mg/dL 8.5-10.1 Magnesium - 10/29/18 14:30 Magnesium 2.2 mg/dL 1.8-2.4 Serum or plasma troponin i.cardiac measurement (mass/volume) - 10/29/18 14:30 Serum or plasma troponin i.cardiac measurement (mass/volume) 0.031 ng/mL <0.028 THYROID STIMULATING HORMONE - 10/29/18 14:30 THYROID STIMULATING HORMONE 1.58 u[iU]/mL 0.35-4.94 Encounters ACCT No. Visit Date/Time Discharge Status Pt. Type Provider Facility Loc./Unit Complaint [id number] 06/01/2014 14:47:19 06/01/2014 23:59:59 CLS Outpatient Tyler Robert [facility] 12/07/2014 06:09:56 ACT Document Registration [id number] 09/15/2018 08:24:00 09/15/2018 23:59:59 CLS Outpatient COLLEEN CRUMP MD [facility] RAD RUQ ABD PAIN,NAUSEA [id number] 01/12/2018 08:42:00 01/12/2018 23:59:59 CLS Outpatient COLLEEN CRUMP MD [facility] RAD SCREENING MAMMO [id number] 10/02/2017 20:00:00 10/03/2017 06:00:00 DIS Outpatient BENJAMÍN FUNK APRN [facility] SLEEP I48.91 AF [id number] 08/19/2017 13:50:00 08/19/2017 23:59:59 CLS Outpatient ELIZABETH LAM DO [facility] RAD CYST,OVARIAN [id number] 07/03/2017 11:02:00 07/03/2017 23:59:59 CLS Outpatient MARY SILVA Rani [facility] RAD ABD PAIN [id number] 06/14/2017 10:54:00 06/16/2017 17:00:00 DIS Inpatient COLLEEN CRUMP MD [facility] ICU A-FIB W/ RVR, N/V/D [id number] 06/09/2017 09:51:00 06/09/2017 23:59:59 CLS Outpatient COLLEEN CRUMP MD [facility] CARD AFIB W/RVR [id number] 08/29/2015 14:40:00 08/29/2015 23:59:59 CLS Outpatient COLLEEN CRUMP MD [facility] RAD ROUTINE MAMMOGRAM SCREENING [id number] 12/07/2014 06:00:00 12/08/2014 10:00:00 DIS Outpatient ELIZABETH GUTIERREZ MD [facility] SDC RIGHT THYROID MASS [id number] 12/05/2014 08:47:00 12/05/2014 23:59:59 CLS Outpatient NISHI SINGH MD [facility] CARD AFIB FATIGUE PALPITATIONS [id number] 11/30/2014 08:55:00 11/30/2014 23:59:59 CLS Outpatient ELIZABETH GUTIERREZ MD [facility] PREOP RIGHT THYROID MASS [id number] 09/20/2014 08:00:00 09/20/2014 23:59:59 [facility] [id number] 09/13/2014 09:26:00 09/13/2014 23:59:59 CLS Outpatient TADEO BARRETT MD [facility] PREOP THYROID NODULE [id number] 09/13/2014 08:15:00 09/13/2014 23:59:59 CLS Outpatient TADEO BARRETT MD [facility] RAD RT THYROID NODULE [id number] 08/22/2014 11:57:00 08/22/2014 23:59:59 CLS Outpatient COLLEEN CRUMP MD [facility] RAD RU POLE THYROID NODULE VS LYMPH NODE [id number] 09/05/2013 14:29:00 09/05/2013 23:59:59 CLS Outpatient COLLEEN CRUMP MD [facility] RAD SCREENING [id number] 10/29/2018 13:21:00 ACT Emergency KIAN CANDELARIA APRN [facility] ER LIGHT HEADED/PALMER [id number] 07/27/2012 15:10:00 Document Registration [id number] 11/26/2011 09:49:00 Document Registration [id number] 09/04/2011 07:47:00 Document Registration [id number] 06/24/2011 11:11:00 Document Registration [id number] 03/28/2010 08:39:00 Document Registration
== END 2018-10-29 16:32 | disposition home or self-care (01) ==
LOC: EDUNIT# 13:20 → ER 13:21
DX: I48.91 Unspecified atrial fibrillation (principal); R79.89 Other specified abnormal findings of blood chemistry; K58.9 Irritable bowel syndrome, unspecified; Z79.01 Long term (current) use of anticoagulants; Z90.89 Acquired absence of other organs; Z85.820 Personal history of malignant melanoma of skin
CPT/HCPCS: 36415; 80053; 83735; 84443; 84484; 85025; 93005

== ENCOUNTER → 2019-01-21 | Outpatient (CLI) | payer BC ==
--- NOTE | 2019-01-21 17:38 | Diagnostic Imaging Report ---
INDICATION: Routine screening. COMPARISON: Comparison is made with prior mammograms from 01/12/2018 and 08/29/2015. TECHNIQUE: 2D and 3D bilateral screening mammography was performed with Computer Aided Detection (CAD) system. FINDINGS: Both breasts remain heterogeneously dense, limiting the sensitivity of mammography. There are benign calcifications bilaterally. No mass or malignant-appearing microcalcifications are seen. Axillae are unremarkable. IMPRESSION: No mammographic features suspicious for malignancy are identified. ACR BI-RADS Category 2: Benign findings. Result letter will be mailed to the patient. Note: At least 10% of breast cancer is not imaged by mammography. Dictated by: Dictated on workstation # [id number]
== END ==
LOC: RAD 08:58
PROVIDERS: ATTEND Internal Medicine
DX: Z12.31 Encounter for screening mammogram for malignant neoplasm of breast (principal)
CPT/HCPCS: 77067

== ENCOUNTER → 2020-02-22 | Outpatient (CLI) | payer BC ==
[~2020-02-22] MED LIST changes: +DILT240C92 PO; -DILT240C97 PO
== END ==
LOC: LABNPT 06:54
PROVIDERS: ATTEND Internal Medicine Gastroenterology
DX: R10.9 Unspecified abdominal pain (principal)

== ENCOUNTER → 2020-03-20 | Outpatient (CLI) | payer BC | LOC: LABNPT 06:50 | PROVIDERS: ATTEND Internal Medicine Gastroenterology | DX: R10.9 Unspecified abdominal pain (principal); Z20.828 Contact with and (suspected) exposure to other viral communicable diseases | CPT/HCPCS: 87635 ==